=== PATIENT | female | born 1970 | race Caucasian/White ===

== ENCOUNTER 2017-11-14 10:10 | Emergency (ER) | payer BC, OTHER ==
[2017-11-14] MEDS ORDERED: Aspirin 81 MG Tab.Chew PO ONE (10:19)
--- NOTE | 2017-11-14 10:21 | EDM.PDOC ---
ED HPI GENERAL MEDICAL PROBLEM - General Stated Complaint: UNK Time Seen by Provider: 11/14/17 10:21 Source of Information: Reports: Patient - History of Present Illness INITIAL COMMENTS - FREE TEXT/NARRATIVE: HISTORY AND PHYSICAL: History of present illness: [Patient has presented with chest pain today, blood pressure is checked at her workplace and found to be quite elevated on their measurement 180s over 1 teens however on arrival here blood pressure is 120/80 patient is in no distress does not appear anxious no fever nausea vomiting chills sweats no chest pain shortness breath headache dizziness palpitation no bowel or urine symptoms 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 ] Review of systems: As per history of present illness and below otherwise all systems reviewed and negative. Past medical history: As per history of present illness and as reviewed below otherwise noncontributory. Surgical history: As per history of present illness and as reviewed below otherwise noncontributory. Social history: No reported history of drug or alcohol abuse. Family history: As per history of present illness and as reviewed below otherwise noncontributory. Physical exam: HEENT: Atraumatic, normocephalic, pupils reactive, negative for conjunctival pallor or scleral icterus, mucous membranes moist, throat clear, neck supple, nontender, trachea midline. Lungs: Clear to auscultation, breath sounds equal bilaterally, chest nontender. Heart: S1S2, regular, negative for clicks, rubs, or JVD. Abdomen: Soft, nondistended, nontender. Negative for masses or hepatosplenomegaly. Negative for costovertebral tenderness. Pelvis: Stable nontender. Genitourinary: Deferred. Rectal: Deferred. Extremities: Atraumatic, negative for cords or calf pain. Neurovascular unremarkable. Neuro: Awake, alert, oriented. Cranial nerves II through XII unremarkable. Cerebellum unremarkable. Motor and sensory unremarkable throughout. Exam nonfocal. Diagnostics: [CBC CMP cardiac enzymes INR EKG Chest 1 view ] Therapeutics: [ saline 500 mL aspirin 324 mg chewable ] Impression: [ chest pain -resolved Hypertension resolved Known history of dyslipidemia medication noncompliant Definitive disposition and diagnosis as appropriate pending reevaluation and review of above. - Related Data Allergies Allergy/AdvReac Type Severity Reaction Status Date / Time No Known Allergies Allergy Verified 11/14/17 10:54 Home Meds: Home Meds . [No Known Home Meds] 11/14/17 [History] ED ROS GENERAL - Review of Systems Review Of Systems: ROS reveals no pertinent complaints other than HPI. ED EXAM, GENERAL - Physical Exam Exam: See Below Course - Vital Signs Last Recorded V/S: Last Vital Signs Temp 97.9 F 11/14/17 10:15 Pulse 77 11/14/17 10:15 Resp 16 11/14/17 10:15 BP 134/84 11/14/17 10:15 Pulse Ox 97 11/14/17 10:15 - Orders/Labs/Meds Orders: Active Orders 24 hr Category Date Time Status EKG Documentation Completion [RC] STAT Care 11/14/17 10:20 Active UA W/MICROSCOPIC [URIN] Stat Lab 11/14/17 11:10 Ordered Sodium Chloride 0.9% [Normal Saline] 500 ml Med 11/14/17 10:30 Active IV STAT Medication Orders Sodium Chloride (Normal Saline) 500 mls @ 999 mls/hr IV STAT MARISELA Last Admin: 11/14/17 10:29 Dose: 999 mls/hr Labs: Laboratory Tests 11/14/17 11/14/17 11/14/17 Range/Units 10:20 10:20 10:20 WBC 8.41 (4.0-11.0) K/uL RBC 4.57 (4.30-5.90) M/uL Hgb 14.7 (12.0-16.0) g/dL Hct 42.0 (36.0-46.0) % MCV 91.9 (80.0-98.0) fL MCH 32.2 H (27.0-32.0) pg MCHC 35.0 (31.0-37.0) g/dL RDW Std Deviation 43.0 (28.0-62.0) fl RDW Coeff of Natalie 13 (11.0-15.0) % Plt Count 283 (150-400) K/uL MPV 10.20 (7.40-12.00) fL Neut % (Auto) 55.8 (48.0-80.0) % Lymph % (Auto) 30.8 (16.0-40.0) % [place] % (Auto) 8.6 (0.0-15.0) % Eos % (Auto) 4.2 (0.0-7.0) % Baso % (Auto) 0.6 (0.0-1.5) % Neut # (Auto) 4.7 (1.4-5.7) K/uL Lymph # (Auto) 2.6 H (0.6-2.4) K/uL [place] # (Auto) 0.7 (0.0-0.8) K/uL Eos # (Auto) 0.4 (0.0-0.7) K/uL Baso # (Auto) 0.1 (0.0-0.1) K/uL Nucleated RBC % 0.0 /100WBC Nucleated RBCs # 0 K/uL INR 0.97 Sodium 137 (136-145) mmol/L Potassium 4.4 (3.5-5.1) mmol/L Chloride 103 (98-107) mmol/L Carbon Dioxide 26.2 (21.0-32.0) mmol/L BUN 16 (7.0-18.0) mg/dL Creatinine 0.9 (0.6-1.0) mg/dL Est Cr Clr Drug Dosing 58.31 mL/min Estimated GFR (MDRD) > 60.0 ml/min Glucose 103 (74-106) mg/dL Calcium 9.1 (8.5-10.1) mg/dL Total Bilirubin 0.9 (0.2-1.0) mg/dL AST 106 H (15-37) IU/L ALT 120 H (14-63) IU/L Alkaline Phosphatase 79 (46-116) U/L Creatine Kinase 77 (26-308) U/L CK-MB (CK-2) 0.8 (0-3.6) ng/mL Troponin I < 0.050 (0.000-0.056) ng/mL Total Protein 6.9 (6.4-8.2) g/dL Albumin 3.8 (3.4-5.0) g/dL Globulin 3.1 (2.0-3.5) g/dL Albumin/Globulin Ratio 1.2 L (1.3-2.8) Lipase 52 L (73-393) U/L Meds: Medications Generic Name Dose Route Start Last Admin Trade Name Freq PRN Reason Stop Dose Admin Sodium Chloride 500 mls @ 999 mls/hr 11/14/17 10:30 11/14/17 10:29 Normal Saline IV 999 mls/hr STAT MARISELA Administration Discontinued Medications Generic Name Dose Route Start Last Admin Trade Name Ayden PRN Reason Stop Dose Admin Aspirin 324 mg 11/14/17 10:19 11/14/17 10:32 Aspirin PO 11/14/17 10:20 324 mg ONETIME ONE Administration Departure - Departure Time of Disposition: 11:21 Disposition: Home, Self-Care 01 Condition: Good Clinical Impression: Atypical chest pain - Discharge Information Referrals: PCP,Unknown [Primary Care Provider] - Additional Instructions: No specific recommendation at this time as far as prescription medications Recommend aspirin daily Follow-up with primary care for recheck of cholestero possibly checking VMA levels to rule out pheochromocytoma you may discuss this with your primary care Consider exercise stress testing with your primary carel Return if symptoms persist or worsen [facility] - [facility] [address] [place] [id number] The following information is given to patients seen in the emergency department who are being discharged to home. This information is to outline your options for follow-up care. We provide all patients seen in our emergency department with a follow-up referral. The need for follow-up, as well as the timing and circumstances, are variable depending upon the specifics of your emergency department visit. If you don't have a primary care physician on staff, we will provide you with a referral. We always advise you to contact your personal physician following an emergency department visit to inform them of the circumstance of the visit and for follow-up with them and/or the need for any referrals to a consulting specialist. The emergency department will also refer you to a specialist when appropriate. This referral assures that you have the opportunity for follow-up care with a specialist. All of these measure are taken in an effort to provide you with optimal care, which includes your follow-up. Under all circumstances we always encourage you to contact your private physician who remains a resource for coordinating your care. When calling for follow-up care, please make the office aware that this follow-up is from your recent emergency room visit. If for any reason you are refused follow-up, please contact the [facility] emergency department at and asked to speak to the emergency department charge nurse. - My Orders Last 24 Hours: My Active Orders 11/14/17 10:20 EKG Documentation Completion [RC] STAT 11/14/17 10:30 Sodium Chloride 0.9% [Normal Saline] 500 ml IV STAT 11/14/17 11:10 UA W/MICROSCOPIC [URIN] Stat - Assessment/Plan Last 24 Hours: My Active Orders 11/14/17 10:20 EKG Documentation Completion [RC] STAT 11/14/17 10:30 Sodium Chloride 0.9% [Normal Saline] 500 ml IV STAT 11/14/17 11:10 UA W/MICROSCOPIC [URIN] Stat
[2017-11-14] MEDS ORDERED: Sodium Chloride 0.9% 500 ML IV SCH (10:30)
[2017-11-14 11:15] LABS: CHLORIDE,CL 103 mmol/L (98-107); SODIUM,NA 137 mmol/L (136-145)
--- NOTE | 2017-11-14 11:18 | CR ---
EXAMINATION: Portable chest radiograph. HISTORY: Shortness of breath. FINDINGS: The trachea is midline. The cardiomediastinal silhouette is within normal limits. No pulmonary infilt rates, effusions or pneumothorax. Osseous structures appear unremarkable. IMPRESSION: No acute cardiopulmonary process.
== END 2017-11-14 11:38 | disposition home or self-care (01) ==
LOC: MW.ED 10:10
DX: R07.89 Other chest pain (principal); I10 Essential (primary) hypertension
CPT/HCPCS: 36415; 71045; 80053; 81001; 82550; 82553; 83690; 84484; 85025; 85610; 93005; 96360; 99285; A9270; J7040

== ENCOUNTER 2018-09-18 11:00 | Emergency (ER) | payer OTHER ==
--- NOTE | 2018-09-18 12:31 | EDM.PDOC ---
ED HPI GENERAL MEDICAL PROBLEM - General Chief Complaint: Cardiovascular Problem Stated Complaint: CHEST PAINS Time Seen by Provider: 09/18/18 11:35 Source of Information: Reports: Patient History Limitations: Reports: No Limitations - History of Present Illness INITIAL COMMENTS - FREE TEXT/NARRATIVE: Presents primarily with a headache. The patient states that she has been doctoring for a number of things including a one year history of chest pain which she states was completely worked up by cardiology. She also has an EGD scheduled through primary care and an appointment with neurology for her ongoing headaches. She came in today because she had the worst headaches ever over the weekend. She saw her primary care provider today who sent her over to the ER for a CT scan. I was unable to ascertain why the primary care provider did not do a CT T scan through the clinic. According to the patient, she had a "thunderclap" headache on Monday which started with some chest pain. That got better with some rest. Later she went over to the emergency room in [place] for her 1 year history of chest pain even though that had been evaluated previously. She was evaluated, given a nitroglycerin and sent home. Then yesterday she had another stabbing headache, came to the ER, saw there was a long line at the admissions desk, went out to her car and sat for a little while. The headache improved so she went home. Now today, she states the headache is lingering. 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 - Past Surgical History HEENT Surgical History: Reports: Tonsillectomy GI Surgical History: Reports: Appendectomy Social & Family History - Family History Family Medical History: Noncontributory Cardiac: Reports: Bypass, High Cholesterol, Hypertension Other Cardiac Family History: cardiac problems in father - Tobacco Use Smoking Status *Q: Current Every Day Smoker Years of Tobacco use: 10 Packs/Tins Daily: 1 - Caffeine Use Caffeine Use: Reports: Coffee, Energy Drinks, Tea - Recreational Drug Use Recreational Drug Use: No ED ROS GENERAL - Review of Systems Review Of Systems: ROS reveals no pertinent complaints other than HPI. ED EXAM, GENERAL - Physical Exam Exam: See Below Exam Limited By: No Limitations General Appearance: Alert, No Apparent Distress Eye Exam: Bilateral Eye: EOMI, PERRL Ears: Normal External Exam, Normal TMs Nose: Normal Inspection Throat/Mouth: Normal Inspection Head: Atraumatic, Normocephalic Neck: Normal Inspection Respiratory/Chest: No Respiratory Distress, Lungs Clear, Normal Breath Sounds Cardiovascular: Normal Peripheral Pulses, Regular Rate, Rhythm, No Murmur GI/Abdominal: Soft Neurological: Alert, Oriented, CN II-XII Intact, Normal Cognition, No Motor/ Sensory Deficits Psychiatric: Normal Affect, Normal Mood Skin Exam: Warm, Dry, Intact, Normal Color, No Rash Lymphatic: No Adenopathy Course - Vital Signs Last Recorded V/S: Last Vital Signs Temp 36.9 C 09/18/18 11:12 Pulse 82 09/18/18 11:12 Resp 18 09/18/18 11:12 BP 143/81 H 09/18/18 11:12 Pulse Ox 96 09/18/18 11:12 - Re-Assessments/Exams Free Text/Narrative Re-Assessment/Exam: 09/18/18 12:50 The patient declined any offers of treatment for her headache. She will see neurology as previously scheduled Departure - Departure Time of Disposition: 12:50 Disposition: Home, Self-Care 01 Condition: Good Clinical Impression: Headache Qualifiers: Headache type: other headache syndrome Qualified Code(s): G44.89 - Other headache syndrome Referrals: PCP,Unknown [Primary Care Provider] - [facility] [Outside] Pratima Leal MD [Physician] - Forms: ED Department Discharge Additional Instructions: 1. Ibuprofen 2-3 tabs 3 times daily for headache 2. Follow-up with neurology as previously scheduled
--- NOTE | 2018-09-18 12:43 | CT ---
EXAMINATION: Non contrast CT head. Coronal and sagittal reformats. HISTORY: Headache FINDINGS: No evidence of intra or extra axial hemorrhage, mass, midline shift, hydrocephalus or edema. No hypoattenuation changes in the major vascular territories to suggest acute infarct. No abnormal intracranial calcifications are detected. No evidence of substantial vascular calcifications. Paranasal sinuses and mastoid air cells are well aerated without substantial findings. Orbits and globes are symmetric. Pituitary fossa appears unremarkable. Calvarium is intact. No evidence of skull fracture. IMPRESSION: No acute intracranial findings.
== END 2018-09-18 13:04 | disposition home or self-care (01) ==
LOC: MW.ED 11:00
DX: G44.89 Other headache syndrome (principal); R07.9 Chest pain, unspecified; F17.210 Nicotine dependence, cigarettes, uncomplicated; E78.00 Pure hypercholesterolemia, unspecified
CPT/HCPCS: 70450; 70450-26; 93005; 99284-25

== ENCOUNTER 2019-01-15 08:12 | Emergency (ER) | payer OTHER ==
[2019-01-15] MEDS ORDERED: Aspirin 81 MG Tab.Chew PO ONE (08:22)
--- NOTE | 2019-01-15 08:23 | EDM.PDOC ---
ED HPI GENERAL MEDICAL PROBLEM - General Chief Complaint: Chest Pain Stated Complaint: CHEST PAIN Time Seen by Provider: 01/15/19 08:23 Source of Information: Reports: Patient - History of Present Illness INITIAL COMMENTS - FREE TEXT/NARRATIVE: HISTORY AND PHYSICAL: History of present illness: [Patient complains of epigastric pain 2 out of 10 nonradiating, persistent waxing and waning for one year with food association although she is kind of weaned herself off of most fatty greasy foods She has been following with cardiology and has had negative stress testing and been seen through [facility] as well No fever vomiting chills sweats she does complain of mild nausea associated no actual chest pain shortness of breath associated with diaphoresis no radiation arm neck or jaw Patient is in no apparent distress ] Review of systems: As per history of present illness and below otherwise all systems reviewed and negative. Past medical history: As per history of present illness and as reviewed below otherwise noncontributory. Surgical history: As per history of present illness and as reviewed below otherwise noncontributory. Social history: No reported history of drug or alcohol abuse. Family history: As per history of present illness and as reviewed below otherwise noncontributory. Physical exam: HEENT: Atraumatic, normocephalic, pupils reactive, negative for conjunctival pallor or scleral icterus, mucous membranes moist, throat clear, neck supple, nontender, trachea midline. Lungs: Clear to auscultation, breath sounds equal bilaterally, chest nontender. Heart: S1S2, regular, negative for clicks, rubs, or JVD. Abdomen: Soft, nondistended, nontender. Negative for masses or hepatosplenomegaly. Negative for costovertebral tenderness. Pelvis: Stable nontender. Genitourinary: Deferred. Rectal: Deferred. Extremities: Atraumatic, negative for cords or calf pain. Neurovascular unremarkable. Neuro: Awake, alert, oriented. Cranial nerves II through XII unremarkable. Cerebellum unremarkable. Motor and sensory unremarkable throughout. Exam nonfocal. Diagnostics: [CBC CMP UA troponin lipase EKG Chest 1 view ]Abdomen limited ultrasound Cipro Zofran [place] diet discussed with Dr. Colon she will see her in follow-up in order HIDA scan Therapeutics: [ aspirin 324 mg chewable ]-resolved Normal saline Toradol Zofran Impression: [ abdominal pain ] Definitive disposition and diagnosis as appropriate pending reevaluation and review of above. Middle Chest Pain Score (Numeric/FACES): 5 - Related Data Allergies Allergy/AdvReac Type Severity Reaction Status Date / Time No Known Allergies Allergy Verified 01/15/19 08:21 Home Meds: Home Meds . 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 - Past Surgical History HEENT Surgical History: Reports: Tonsillectomy GI Surgical History: Reports: Appendectomy Social & Family History - Family History Family Medical History: Noncontributory Cardiac: Reports: Bypass, High Cholesterol, Hypertension Other Cardiac Family History: cardiac problems in father - Caffeine Use Caffeine Use: Reports: Coffee, Energy Drinks, Tea ED ROS GENERAL - Review of Systems Review Of Systems: See Below ED EXAM, GENERAL - Physical Exam Exam: See Below Course - Vital Signs Last Recorded V/S: Last Vital Signs Temp 97.2 F 01/15/19 11:10 Pulse 66 01/15/19 11:10 Resp 13 01/15/19 10:45 BP 102/60 01/15/19 11:10 Pulse Ox 96 01/15/19 11:10 - Orders/Labs/Meds Orders: Active Orders 24 hr Category Date Time Status EKG Documentation Completion [RC] STAT Care 01/15/19 08:23 Active CULTURE URINE [RM] Stat Lab 01/15/19 09:50 Received Labs: Laboratory Tests 01/15/19 01/15/19 01/15/19 Range/Units 08:21 08:21 09:50 WBC 12.06 H (4.0-11.0) K/uL RBC 5.14 (4.30-5.90) M/uL Hgb 17.0 H (12.0-16.0) g/dL Hct 47.9 H (36.0-46.0) % MCV 93.2 (80.0-98.0) fL MCH 33.1 H (27.0-32.0) pg MCHC 35.5 (31.0-37.0) g/dL RDW Std Deviation 41.1 (28.0-62.0) fl RDW Coeff of Natalie 12 (11.0-15.0) % Plt Count 295 (150-400) K/uL MPV 10.10 (7.40-12.00) fL Neut % (Auto) 72.1 (48.0-80.0) % Lymph % (Auto) 17.8 (16.0-40.0) % [place] % (Auto) 8.1 (0.0-15.0) % Eos % (Auto) 1.6 (0.0-7.0) % Baso % (Auto) 0.4 (0.0-1.5) % Neut # (Auto) 8.7 H (1.4-5.7) K/uL Lymph # (Auto) 2.2 (0.6-2.4) K/uL [place] # (Auto) 1.0 H (0.0-0.8) K/uL Eos # (Auto) 0.2 (0.0-0.7) K/uL Baso # (Auto) 0.1 (0.0-0.1) K/uL Nucleated RBC % 0.0 /100WBC Nucleated RBCs # 0 K/uL Sodium 132 L (136-145) mmol/L Potassium 4.2 (3.5-5.1) mmol/L Chloride 103 (98-107) mmol/L Carbon Dioxide 20.3 L (21.0-32.0) mmol/L BUN 17 (7.0-18.0) mg/dL Creatinine 0.8 (0.6-1.0) mg/dL Est Cr Clr Drug Dosing 64.89 mL/min Estimated GFR (MDRD) > 60.0 ml/min Glucose 114 H (74-106) mg/dL Calcium 8.8 (8.5-10.1) mg/dL Total Bilirubin 1.7 H (0.2-1.0) mg/dL AST 20 (15-37) IU/L ALT 29 (14-63) IU/L Alkaline Phosphatase 66 (46-116) U/L Troponin I < 0.050 (0.000-0.056) ng/mL Total Protein 7.7 (6.4-8.2) g/dL Albumin 4.3 (3.4-5.0) g/dL Globulin 3.4 (2.6-4.0) g/dL Albumin/Globulin Ratio 1.3 (0.9-1.6) Lipase 50 L (73-393) U/L Urine Color YELLOW Urine Appearance SLT CLOUDY Urine pH 5.5 (5.0-8.0) Ur Specific [place] 1.020 (1.001-1.035) Urine Protein NEGATIVE (NEGATIVE) mg/dL Urine Glucose (UA) NEGATIVE (NEGATIVE) mg/dL Urine Ketones NEGATIVE (NEGATIVE) mg/dL Urine Occult Blood LARGE H (NEGATIVE) Urine Nitrite NEGATIVE (NEGATIVE) Urine Bilirubin NEGATIVE (NEGATIVE) Urine Urobilinogen 0.2 (<2.0) EU/dL Ur Leukocyte Esterase TRACE H (NEGATIVE) Urine RBC 0-2 (0-2/HPF) Urine WBC 2-5 (0-5/HPF) Ur Epithelial Cells FEW (NONE-FEW) Urine Bacteria RARE (NEGATIVE) Meds: Medications Discontinued Medications Generic Name Dose Route Start Last Admin Trade Name Deniq PRN Reason Stop Dose Admin Aspirin 324 mg 01/15/19 08:22 01/15/19 08:35 Aspirin PO 01/15/19 08:23 324 mg ONETIME ONE Administration Sodium Chloride 1,000 mls @ 999 mls/hr 01/15/19 08:29 01/15/19 08:35 Normal Saline IV 01/15/19 09:29 999 mls/hr STAT ONE Administration Ketorolac Tromethamine 30 mg 01/15/19 08:30 01/15/19 08:35 Toradol IVPUSH 01/15/19 08:31 30 mg ONETIME ONE Administration Ondansetron HCl 8 mg 01/15/19 08:30 01/15/19 08:35 Zofran IVPUSH 01/15/19 08:31 8 mg ONETIME ONE Administration Departure - Departure Time of Disposition: 12:19 Disposition: Home, Self-Care 01 Condition: Good Clinical Impression: Abdominal pain - Discharge Information Referrals: PCP,None [Primary Care Provider] - Forms: ED Department Discharge Additional Instructions: Medication as prescribed Return if symptoms persist or worsen [place] diet as discussed follow-up with general surgery for consideration of HIDA scan, ER referral for next week [facility] - General Surgery Professional Building [address] [place] [address], [address] [place] [address] The following information is given to patients seen in the emergency department who are being discharged to home. This information is to outline your options for follow-up care. We provide all patients seen in our emergency department with a follow-up referral. The need for follow-up, as well as the timing and circumstances, are variable depending upon the specifics of your emergency department visit. If you don't have a primary care physician on staff, we will provide you with a referral. We always advise you to contact your personal physician following an emergency department visit to inform them of the circumstance of the visit and for follow-up with them and/or the need for any referrals to a consulting specialist. The emergency department will also refer you to a specialist when appropriate. This referral assures that you have the opportunity for follow-up care with a specialist. All of these measure are taken in an effort to provide you with optimal care, which includes your follow-up. Under all circumstances we always encourage you to contact your private physician who remains a resource for coordinating your care. When calling for follow-up care, please make the office aware that this follow-up is from your recent emergency room visit. If for any reason you are refused follow-up, please contact the [facility] emergency department at and asked to speak to the emergency department charge nurse. - My Orders Last 24 Hours: My Active Orders 01/15/19 08:23 EKG Documentation Completion [RC] STAT 01/15/19 09:50 CULTURE URINE [RM] Stat - Assessment/Plan Last 24 Hours: My Active Orders 01/15/19 08:23 EKG Documentation Completion [RC] STAT 01/15/19 09:50 CULTURE URINE [RM] Stat
[2019-01-15] MEDS ORDERED: Sodium Chloride 0.9% 1,000 ML IV ONE (08:29)
[2019-01-15] MEDS ORDERED: Ondansetron 4 MG/2 ML SDV IVPUSH ONE (08:30)
[2019-01-15] MEDS ORDERED: Ketorolac 30 MG/ML SDV IVPUSH ONE (08:30)
[2019-01-15 08:56] LABS: CHLORIDE,CL 103 mmol/L (98-107); SODIUM,NA 132 mmol/L (136-145)
--- NOTE | 2019-01-15 09:01 | CR ---
EXAMINATION: Portable chest radiograph. HISTORY: Shortness of breath. FINDINGS: The trachea is midline. The cardiomediastinal silhouette is within normal limits. No pulmonary infiltrates, effusions or pneumothorax. Osseous structures appear unremarkable. IMPRESSION: No acute cardiopulmonary process.
--- NOTE | 2019-01-15 11:49 | US ---
EXAMINATION: Right upper quadrant ultrasound HISTORY: Pain COMPARISON: None TECHNIQUE: Grayscale and color Doppler imaging obtained of the right upper quadrant. FINDINGS: The visualized pancreas appears normal. The liver is normal in contour and echotexture without a focal hepatic mass. The common bile duct is mildly prominent at 8 mm, however the distal common bile duct is not adequately visualized. The gallbladder wall thickness is normal. No pericholecystic fluid or shadowing gallstones. Right kidney measures 10.8 cm [id number] without evidence of hydronephrosis. IMPRESSION: 1. Mildly dilated common bile duct measuring 8 mm, otherwise unremarkable right upper quadrant ultrasound.
== END 2019-01-15 12:43 | disposition home or self-care (01) ==
LOC: MW.ED 08:12
DX: R10.13 Epigastric pain (principal)
CPT/HCPCS: 36415; 71045; 76705; 80053; 81001; 83690; 84484; 85025; 87086; 93005; 96361; 96374; 96375; 99285; A9270; J1885; J2405; J7040

== ENCOUNTER 2019-01-16 13:33 | Emergency (ER) | payer OTHER ==
[2019-01-16] MEDS ORDERED: Ondansetron 4 MG/2 ML SDV IVPUSH ONE (13:47)
[2019-01-16] MEDS ORDERED: Ketorolac 30 MG/ML SDV IVPUSH ONE (13:47)
[2019-01-16] MEDS ORDERED: Sodium Chloride 0.9% 1,000 ML IV ONE (13:47)
--- NOTE | 2019-01-16 13:47 | EDM.PDOC ---
ED HPI GENERAL MEDICAL PROBLEM - General Chief Complaint: Chest Pain Stated Complaint: CHEST PAINS Time Seen by Provider: 01/16/19 13:38 Source of Information: Reports: Patient History Limitations: Reports: No Limitations - History of Present Illness INITIAL COMMENTS - FREE TEXT/NARRATIVE: HISTORY AND PHYSICAL: History of present illness: Patient is a 48-year-old female who presents to the emergency room today with complaints of epigastric/left-sided chest wall pain which has been going on intermittently over the past one year. She states over the past several days it has become more bothersome. She was evaluated in the emergency room yesterday, on 01/15/19. She did have a workup which included cardiac enzymes and an ultrasound of her right upper quadrant. She was encouraged to follow up with Dr. Adams for further evaluation and HIDA scan. She call Dr. Adams's office and was told that the next available appointment was mid January. Patient did not make an appointment and she states that she is "not waiting that long to get my gallbladder out". She informed the staff at the clinic that she was having chest pain in the encouraged her to come to the emergency room. She is given a prescription for Zofran and [place]. Patient states she filled this prescription but has not tried the [place] medication. Patient states that she has not been able to eat or drink as doing so does cause her pain to be exacerbated. Besides the epigastric/left-sided chest wall pain she does have mild nausea. Patient denies any fever, chills, headache, change in vision, syncope or near syncope. Denies any back pain, shortness of breath or cough. Denies any vomiting , diarrhea, constipation or dysuria. Has not noted any blood in urine or stool. Review of systems: As per history of present illness and below otherwise all systems reviewed and negative. Past medical history: As per history of present illness and as reviewed below otherwise noncontributory. Surgical history: As per history of present illness and as reviewed below otherwise noncontributory. Social history: See social history for further information Family history: As per history of present illness and as reviewed below otherwise noncontributory. Physical exam: General: Well-developed and well-nourished 48-year-old female. Alert and oriented. Nontoxic appearing and in no acute distress. HEENT: Atraumatic, normocephalic, pupils equal and reactive bilaterally, negative for conjunctival pallor or scleral icterus, mucous membranes moist, trachea midline. No drooling or trismus noted. No meningeal signs. No hot potato voice noted. Lungs: Clear to auscultation, breath sounds equal bilaterally, chest nontender. Heart: S1S2, regular rate and rhythm without overt murmur Abdomen: Soft, nondistended, nontender. Negative for masses or hepatosplenomegaly. Negative for costovertebral tenderness. Pelvis: Stable nontender. Skin: Intact, warm, dry. No lesions or rashes noted. Extremities: Atraumatic, moves all extremities per self without difficulty or deficits, negative for cords or calf pain. Neurovascular unremarkable. Neuro: Awake, alert, oriented. Cranial nerves II through XII unremarkable. Cerebellum unremarkable. Motor and sensory unremarkable throughout. Exam nonfocal. Notes: Ultrasound on 01/15/19 shows mildly dilated common bile duct measuring 8 mm, otherwise unremarkable right upper quadrant ultrasound. Patient's troponin is elevated at this time. A troponin was done yesterday and was in normal limits. Her EKG upon arrival shows no acute findings. This was reviewed by myself and Dr. Sinclair. Repeat EKG shows no acute findings. Dr Du, [facility] physician, was consulted on this case and agreeable to accepting this patient for further care and management. Patient was made aware of diagnostic findings. She has been pain-free since arrival. Vital signs are stable and have been reviewed by me. Patient will be transferred via ground EMS Diagnostics: CBC, CMP, troponin, EKG Therapeutics: IV fluid, Zofran, Toradol Impression: ACS Plan: Transfer to [facility] in [place] Definitive disposition and diagnosis as appropriate pending reevaluation and review of above. Mid-Sternal Chest Pain Score (Numeric/FACES): 3 - Related Data Allergies Allergy/AdvReac Type Severity Reaction Status Date / Time No Known Allergies Allergy Verified 01/16/19 13:38 Home Meds: Home Meds . [No Known Home Meds] 01/15/19 [History] Past Medical History Cardiovascular History: Reports: High Cholesterol Gastrointestinal History: Reports: Other (See Below) Other Gastrointestinal History: pt c/o of having heartburn for the last week CONSULTING ANALYST History: Reports: , Other (See Below) Other CONSULTING ANALYST History: x3 - Infectious Disease History Infectious Disease History: Reports: Chicken Pox - Past Surgical History HEENT Surgical History: Reports: Tonsillectomy GI Surgical History: Reports: Appendectomy Musculoskeletal Surgical History: Reports: Other (See Below) Other Musculoskeletal Surgeries/Procedures:: L knee surgery Social & Family History - Family History Family Medical History: Noncontributory Cardiac: Reports: Bypass, High Cholesterol, Hypertension Other Cardiac Family History: cardiac problems in father - Tobacco Use Smoking Status *Q: Current Every Day Smoker Years of Tobacco use: 20 Packs/Tins Daily: 0.5 - Caffeine Use Caffeine Use: Reports: Coffee, Energy Drinks, Tea - Recreational Drug Use Recreational Drug Use: No ED ROS GENERAL - Review of Systems Review Of Systems: ROS reveals no pertinent complaints other than HPI. ED EXAM, GENERAL - Physical Exam Exam: See Below (See dictation) Course - Vital Signs Last Recorded V/S: Last Vital Signs Temp 98.8 F 01/16/19 13:34 Pulse 74 01/16/19 14:30 Resp 18 01/16/19 14:30 BP 130/90 01/16/19 14:30 Pulse Ox 98 01/16/19 14:30 - Orders/Labs/Meds Orders: Active Orders 24 hr Category Date Time Status EKG Documentation Completion [RC] STAT Care 01/16/19 13:42 Active EKG Documentation Completion [RC] STAT Care 01/16/19 14:46 Active Labs: Laboratory Tests 01/16/19 01/16/19 Range/Units 13:52 13:52 WBC 11.37 H (4.0-11.0) K/uL RBC 4.84 (4.30-5.90) M/uL Hgb 15.8 (12.0-16.0) g/dL Hct 45.6 (36.0-46.0) % MCV 94.2 (80.0-98.0) fL MCH 32.6 H (27.0-32.0) pg MCHC 34.6 (31.0-37.0) g/dL RDW Std Deviation 41.8 (28.0-62.0) fl RDW Coeff of Natalie 12 (11.0-15.0) % Plt Count 273 (150-400) K/uL MPV 9.90 (7.40-12.00) fL Neut % (Auto) 75.5 (48.0-80.0) % Lymph % (Auto) 18.8 (16.0-40.0) % [place] % (Auto) 4.9 (0.0-15.0) % Eos % (Auto) 0.4 (0.0-7.0) % Baso % (Auto) 0.4 (0.0-1.5) % Neut # (Auto) 8.6 H (1.4-5.7) K/uL Lymph # (Auto) 2.1 (0.6-2.4) K/uL [place] # (Auto) 0.6 (0.0-0.8) K/uL Eos # (Auto) 0.0 (0.0-0.7) K/uL Baso # (Auto) 0.0 (0.0-0.1) K/uL Nucleated RBC % 0.0 /100WBC Nucleated RBCs # 0 K/uL Sodium 135 L (136-145) mmol/L Potassium 3.8 (3.5-5.1) mmol/L Chloride 102 (98-107) mmol/L Carbon Dioxide 21.2 (21.0-32.0) mmol/L BUN 11 (7.0-18.0) mg/dL Creatinine 0.8 (0.6-1.0) mg/dL Est Cr Clr Drug Dosing 64.89 mL/min Estimated GFR (MDRD) > 60.0 ml/min Glucose 113 H (74-106) mg/dL Calcium 8.3 L (8.5-10.1) mg/dL Total Bilirubin 2.1 H (0.2-1.0) mg/dL AST 17 (15-37) IU/L ALT 25 (14-63) IU/L Alkaline Phosphatase 56 (46-116) U/L Troponin I 0.304 H* (0.000-0.056) ng/mL Total Protein 6.9 (6.4-8.2) g/dL Albumin 4.0 (3.4-5.0) g/dL Globulin 2.9 (2.6-4.0) g/dL Albumin/Globulin Ratio 1.4 (0.9-1.6) Lipase 41 L (73-393) U/L Meds: Medications Discontinued Medications Generic Name Dose Route Start Last Admin Trade Name Freq PRN Reason Stop Dose Admin Aspirin 324 mg 01/16/19 14:46 01/16/19 14:55 Aspirin PO 01/16/19 14:47 324 mg ONETIME ONE Administration Sodium Chloride 1,000 mls @ 999 mls/hr 01/16/19 13:47 01/16/19 14:16 Normal Saline IV 01/16/19 14:47 999 mls/hr STAT ONE Administration Ketorolac Tromethamine 30 mg 01/16/19 13:47 01/16/19 14:16 Toradol IVPUSH 01/16/19 13:48 30 mg ONETIME ONE Administration Morphine Sulfate 2 mg 01/16/19 14:48 01/16/19 15:00 Morphine IVPUSH 01/16/19 14:49 Not Given ONETIME ONE Nitroglycerin 1 gm 01/16/19 14:48 01/16/19 14:55 Nitro-Bid 2% TOP 01/16/19 14:49 1 gm ONETIME ONE Administration Ondansetron HCl 4 mg 01/16/19 13:47 01/16/19 14:16 Zofran IVPUSH 01/16/19 13:48 4 mg ONETIME ONE Administration Departure - Departure Time of Disposition: 15:48 Disposition: DC/Tfer to Acute Hospital 02 Reason for Transfer *Q: Primary PCI Indicated Clinical Impression: Acute coronary syndrome Referrals: PCP,Unknown [Primary Care Provider] - Forms: ED Department Discharge - My Orders Last 24 Hours: My Active Orders 01/16/19 13:42 EKG Documentation Completion [RC] STAT 01/16/19 14:46 EKG Documentation Completion [RC] STAT - Assessment/Plan Last 24 Hours: My Active Orders 01/16/19 13:42 EKG Documentation Completion [RC] STAT 01/16/19 14:46 EKG Documentation Completion [RC] STAT
[2019-01-16 14:41] LABS: CHLORIDE,CL 102 mmol/L (98-107); SODIUM,NA 135 mmol/L (136-145)
[2019-01-16] MEDS ORDERED: Aspirin 81 MG Tab.Chew PO ONE (14:46)
[2019-01-16] MEDS ORDERED: Nitroglycerin 2% Oint 1 GM UD Packet TOP ONE (14:48)
[2019-01-16] MEDS ORDERED: Morphine 2 MG/ML Syringe IVPUSH ONE (14:48)
== END 2019-01-16 16:15 ==
LOC: MW.ED 13:33
DX: I24.9 Acute ischemic heart disease, unspecified (principal); F17.210 Nicotine dependence, cigarettes, uncomplicated; E78.00 Pure hypercholesterolemia, unspecified
CPT/HCPCS: 36415; 80053; 83690; 84484; 85025; 93005; 96361; 96374; 96375; 99285; A9270; J1885; J2405; J7040

== ENCOUNTER 2019-02-28 14:45 | Emergency (ER) | payer OTHER ==
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
[2019-02-28] MEDS ORDERED: Sodium Chloride 0.9% 1,000 ML IV ONE (14:54)
[2019-02-28] MEDS ORDERED: Morphine 2 MG/ML Syringe IVPUSH ONE ×2 (14:54→16:12)
[2019-02-28] MEDS ORDERED: Ondansetron 4 MG/2 ML SDV IVPUSH ONE (14:54)
[2019-02-28 15:32] LABS: BLOOD UREA NITROGEN,BUN 20 mg/dL (7.0-18.0); CARBON DIOXIDE,CO2 22.7 mmol/L (21.0-32.0); CHLORIDE,CL 105 mmol/L (98-107); GLUCOSE RANDOM 140 mg/dL (74-106); POTASSIUM,K 3.8 mmol/L (3.5-5.1); SODIUM,NA 140 mmol/L (136-145)
[2019-02-28] MEDS ORDERED: Diphtheria,Pertussis(Acell),Tetanus Vaccine 0.5 ML Syringe IM ONE (15:37)
[2019-02-28] MEDS ORDERED: Iopamidol 755 MG/ML 500 ML Multipack Bottle IVPUSH STA (15:56)
--- NOTE | 2019-02-28 16:07 | CR ---
Indication: Injury and pain Technique: Left knee 3 views Comparison: None Findings/Impression: Bones: Acute transverse nondisplaced fracture is in the lower pole of the patella. There are postoperative changes from an ACL reconstruction. No other osseous abnormality. Joint spaces: Joint effusion is present. No degenerative changes. Soft tissues: Superficial soft tissue swelling is anterior to the patella. Dictated by Kye Thornton MD @ Feb 28 2019 4:04PM Signed by Dr. Kye Thornton @ Feb 28 2019 4:06PM
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
[2019-02-28] MEDS ORDERED: Lidocaine 1% 10 ML MDV INJECT ONE (16:37)
[2019-02-28] MEDS ORDERED: Morphine 4 MG/ML Syringe IVPUSH ONE (16:37)
[2019-02-28] MEDS ORDERED: ceFAZolin 1 GM in Premix Bag 1 BAG IV ONE (16:38)
[2019-02-28] MEDS ORDERED: Lidocaine 1% 50 ML MDV ONE (16:40)
--- NOTE | 2019-02-28 16:41 | CT ---
INDICATION: Trauma TECHNIQUE: CT chest was acquired with 80 cc Isovue IV contrast. COMPARISON: September 25, 2018 FINDINGS: Cardiovascular structures: Heart size is normal. There is a coronary artery stent. Thoracic aorta and main pulmonary artery are normal in caliber. Mediastinum and brandon: No mass or adenopathy. Lungs: Clear. Pleura and pericardium: No effusions. Chest wall and axilla: No mass or adenopathy. Upper abdomen: Unremarkable. Bones: Minimally displaced fractures of the right anterior 4th through 7th ribs. Mild superior endplate irregularity of the T12 vertebral body, stable. IMPRESSION: Minimally displaced fractures of the right anterior 4th through 7th ribs. No pneumothorax. Coronary artery stent. Please note that all CT scans at this facility use dose modulation, iterative reconstruction, and/or weight-based dosing when appropriate to reduce radiation dose to as low as reasonably achievable. Dictated by Salma Pollock MD @ Feb 28 2019 4:26PM Signed by Dr. Salma Pollock @ Feb 28 2019 4:40PM
--- NOTE | 2019-02-28 17:02 | CT ---
INDICATION: Trauma TECHNIQUE: CT abdomen and pelvis acquired with 80 cc Isovue IV contrast. COMPARISON: None FINDINGS: Lower chest: Right anterolateral 4th through 7th rib fractures. Liver: Small amount of perihepatic free fluid measuring 23 Hounsfield units in density. Small amount of fluid in the hepatorenal space. Spleen: Unremarkable. Pancreas: Unremarkable. Gallbladder and bile ducts: Unremarkable. Adrenal glands: 3.0 x 1.6 cm right adrenal gland mass, new compared to the prior chest CT. Kidneys: Unremarkable. GI tract: Unremarkable. Appendix is surgically absent. Vascular structures: Unremarkable. Lymph nodes: Unremarkable. Miscellaneous: Focal soft tissue contusion in the left mid anterior abdominal wall image 84 series 301. Pelvic Organs: Trace free fluid in the pelvis. Bones: Bilateral sacroiliac joint sclerosis. Dystrophic calcification anteromedial to the right lesser trochanter. IMPRESSION: Small amount of perihepatic fluid likely represents small amount of hematoma from a small, occult liver laceration. Right adrenal gland hematoma. Focal soft tissue contusion in the left mid anterior abdominal wall. Right anterolateral 4th through 7th rib fractures. Findings discussed with Dr. Suarez at 5 p.m. on February 28, 2019. Please note that all CT scans at this facility use dose modulation, iterative reconstruction, and/or weight-based dosing when appropriate to reduce radiation dose to as low as reasonably achievable. Dictated by Salma Pollock MD @ Feb 28 2019 4:41PM Signed by Dr. Salma Pollock @ Feb 28 2019 5:02PM
[2019-02-28] MEDS ORDERED: Bacitracin Oint 1 GM U/D Packet TOP ONE (17:19)
[2019-02-28] MEDS ORDERED: Bacitracin Oint 1 GM U/D Packet ONE (17:20)
[2019-02-28] MEDS ORDERED: HYDROmorphone 2 MG/ML SDV IVPUSH ONE (17:46)
[2019-02-28] MEDS: HYDROmorphone 1 MG/ML Syringe ONE ×2 (17:55→17:58)
[2019-02-28] MEDS ORDERED: HYDROmorphone 1 MG/ML Syringe IVPUSH ONE (17:59)
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
[2019-02-28] MEDS ORDERED: Sodium Chloride 0.9% 1,000 ML IV SCH (18:15)
== END 2019-02-28 19:10 ==
LOC: MW.ED 14:45
DX: S82.035 Nondisplaced transverse fracture of left patella (principal); S22.41XA Multiple fractures of ribs, right side, initial encounter for closed fracture; S30.1XXA Contusion of abdominal wall, initial encounter; R74.0 Nonspecific elevation of levels of transaminase and lactic acid dehydrogenase [LDH]; V49.40XA Driver injured in collision with unspecified motor vehicles in traffic accident, initial encounter
CPT/HCPCS: 12004; 36415; 70450; 71260; 72125; 73562; 74177; 80053; 85025; 85610; 93005; 96361; 96365; 96375; 96376; 99285; J0690; J1170; J2001; J2270; J2405; J7040; Q9967

== ENCOUNTER 2019-04-29 17:58 | Emergency (ER) | payer OTHER ==
[2019-04-29] MEDS ORDERED: Aspirin 81 MG Tab.Chew PO ONE (18:04)
[2019-04-29] MEDS ORDERED: Sodium Chloride 0.9% 1,000 ML IV ONE (18:04)
--- NOTE | 2019-04-29 18:04 | EDM.PDOC ---
ED HPI GENERAL MEDICAL PROBLEM - General Chief Complaint: Chest Pain Stated Complaint: CHEST PAINS Time Seen by Provider: 04/29/19 18:03 Source of Information: Reports: Patient - History of Present Illness INITIAL COMMENTS - FREE TEXT/NARRATIVE: HISTORY AND PHYSICAL: History of present illness: [Patient with history of UT December presents with chest pain/pressure for 24 hours2 out of 10 nonradiating no radiation arm neck or jaw No fever nausea vomiting chills sweats no shortness breath no apparent distress ] Review of systems: As per history of present illness and below otherwise all systems reviewed and negative. Past medical history: As per history of present illness and as reviewed below otherwise noncontributory. Surgical history: As per history of present illness and as reviewed below otherwise noncontributory. Social history: No reported history of drug or alcohol abuse. Family history: As per history of present illness and as reviewed below otherwise noncontributory. Physical exam: HEENT: Atraumatic, normocephalic, pupils reactive, negative for conjunctival pallor or scleral icterus, mucous membranes moist, throat clear, neck supple, nontender, trachea midline. Lungs: Clear to auscultation, breath sounds equal bilaterally, chest nontender. Heart: S1S2, regular, negative for clicks, rubs, or JVD. Abdomen: Soft, nondistended, nontender. Negative for masses or hepatosplenomegaly. Negative for costovertebral tenderness. Pelvis: Stable nontender. Genitourinary: Deferred. Rectal: Deferred. Extremities: Atraumatic, negative for cords or calf pain. Neurovascular unremarkable. Neuro: Awake, alert, oriented. Cranial nerves II through XII unremarkable. Cerebellum unremarkable. Motor and sensory unremarkable throughout. Exam nonfocal. 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 - Infectious Disease History Infectious Disease History: Reports: Chicken Pox - Past Surgical History HEENT Surgical History: Reports: Tonsillectomy GI Surgical History: Reports: Appendectomy Musculoskeletal Surgical History: Reports: Other (See Below) Other Musculoskeletal Surgeries/Procedures:: L knee surgery Social & Family History - Family History Family Medical History: Noncontributory Cardiac: Reports: Bypass, High Cholesterol, Hypertension Other Cardiac Family History: cardiac problems in father - Caffeine Use Caffeine Use: Reports: Coffee, Energy Drinks, Tea ED ROS GENERAL - Review of Systems Review Of Systems: See Below ED EXAM, GENERAL - Physical Exam Exam: See Below Course - Vital Signs Last Recorded V/S: Last Vital Signs Temp 97.9 F 04/29/19 18:03 Pulse 66 04/29/19 19:27 Resp 18 04/29/19 18:23 BP 147/101 H 04/29/19 19:27 Pulse Ox 100 04/29/19 19:27 - Orders/Labs/Meds Orders: Active Orders 24 hr Category Date Time Status EKG Documentation Completion [RC] STAT Care 04/29/19 18:03 Active UA RFX AB AND CULT IF INDIC [URIN] Stat Lab 04/29/19 19:19 Received Nitroglycerin [Nitrostat] Med 04/29/19 18:07 Active 0.4 mg SL Q5M PRN Medication Orders Nitroglycerin (Nitrostat) 0.4 mg SL Q5M PRN PRN Reason: Chest Pain Last Admin: 04/29/19 18:16 Dose: 0.4 mg Labs: Laboratory Tests 04/29/19 04/29/19 Range/Units 18:05 18:05 WBC 9.59 (4.0-11.0) K/uL RBC 4.49 (4.30-5.90) M/uL Hgb 14.3 (12.0-16.0) g/dL Hct 41.9 (36.0-46.0) % MCV 93.3 (80.0-98.0) fL MCH 31.8 (27.0-32.0) pg MCHC 34.1 (31.0-37.0) g/dL RDW Std Deviation 41.4 (28.0-62.0) fl RDW Coeff of Natalie 12 (11.0-15.0) % Plt Count 240 (150-400) K/uL MPV 10.10 (7.40-12.00) fL Neut % (Auto) 45.2 L (48.0-80.0) % Lymph % (Auto) 43.9 H (16.0-40.0) % [place] % (Auto) 8.1 (0.0-15.0) % Eos % (Auto) 2.4 (0.0-7.0) % Baso % (Auto) 0.4 (0.0-1.5) % Neut # (Auto) 4.3 (1.4-5.7) K/uL Lymph # (Auto) 4.2 H (0.6-2.4) K/uL [place] # (Auto) 0.8 (0.0-0.8) K/uL Eos # (Auto) 0.2 (0.0-0.7) K/uL Baso # (Auto) 0.0 (0.0-0.1) K/uL Nucleated RBC % 0.0 /100WBC Nucleated RBCs # 0 K/uL Sodium 139 (136-145) mmol/L Potassium 3.7 (3.5-5.1) mmol/L Chloride 102 (98-107) mmol/L Carbon Dioxide 24.5 (21.0-32.0) mmol/L BUN 15 (7.0-18.0) mg/dL Creatinine 0.9 (0.6-1.0) mg/dL Est Cr Clr Drug Dosing TNP Estimated GFR (MDRD) > 60.0 ml/min Glucose 95 (74-106) mg/dL Calcium 8.8 (8.5-10.1) mg/dL Total Bilirubin 0.9 (0.2-1.0) mg/dL AST 17 (15-37) IU/L ALT 28 (14-63) IU/L Alkaline Phosphatase 75 (46-116) U/L Troponin I < 0.050 (0.000-0.056) ng/mL Total Protein 7.3 (6.4-8.2) g/dL Albumin 4.2 (3.4-5.0) g/dL Globulin 3.1 (2.6-4.0) g/dL Albumin/Globulin Ratio 1.4 (0.9-1.6) Meds: Medications Generic Name Dose Route Start Last Admin Trade Name Freq PRN Reason Stop Dose Admin Nitroglycerin 0.4 mg 04/29/19 18:07 04/29/19 18:16 Nitrostat SL 0.4 mg Q5M PRN Administration Chest Pain Discontinued Medications Generic Name Dose Route Start Last Admin Trade Name Freq PRN Reason Stop Dose Admin Aspirin 324 mg 04/29/19 18:04 04/29/19 18:13 Aspirin PO 04/29/19 18:05 324 mg ONETIME ONE Administration Sodium Chloride 1,000 mls @ 999 mls/hr 04/29/19 18:04 04/29/19 18:13 Normal Saline IV 04/29/19 19:04 999 mls/hr STAT ONE Administration Departure - Departure Time of Disposition: 19:29 Disposition: Home, Self-Care 01 Condition: Good Clinical Impression: Atypical chest pain Clinical Impression: (Ruled Out): Chest pain - Discharge Information Referrals: Oumar Levy MD [Primary Care Provider] - Forms: ED Department Discharge Additional Instructions: Continue current medications as directed Return if symptoms persist or worsen Follow-up with primary care as needed Follow-up with cardiology as scheduled on The following information is given to patients seen in the emergency department who are being discharged to home. This information is to outline your options for follow-up care. We provide all patients seen in our emergency department with a follow-up referral. The need for follow-up, as well as the timing and circumstances, are variable depending upon the specifics of your emergency department visit. If you don't have a primary care physician on staff, we will provide you with a referral. We always advise you to contact your personal physician following an emergency department visit to inform them of the circumstance of the visit and for follow-up with them and/or the need for any referrals to a consulting specialist. The emergency department will also refer you to a specialist when appropriate. This referral assures that you have the opportunity for follow-up care with a specialist. All of these measure are taken in an effort to provide you with optimal care, which includes your follow-up. Under all circumstances we always encourage you to contact your private physician who remains a resource for coordinating your care. When calling for follow-up care, please make the office aware that this follow-up is from your recent emergency room visit. If for any reason you are refused follow-up, please contact the [facility] emergency department at and asked to speak to the emergency department charge nurse. - My Orders Last 24 Hours: My Active Orders 04/29/19 18:03 EKG Documentation Completion [RC] STAT 04/29/19 18:07 Nitroglycerin [Nitrostat] 0.4 mg SL Q5M PRN 04/29/19 19:19 UA RFX AB AND CULT IF INDIC [URIN] Stat - Assessment/Plan Last 24 Hours: My Active Orders 04/29/19 18:03 EKG Documentation Completion [RC] STAT 04/29/19 18:07 Nitroglycerin [Nitrostat] 0.4 mg SL Q5M PRN 04/29/19 19:19 UA RFX AB AND CULT IF INDIC [URIN] Stat
[2019-04-29] MEDS ORDERED: Nitroglycerin 0.4 MG Tab.SL SL PRN (18:07)
--- NOTE | 2019-04-29 18:37 | CR ---
Indication: Chest pain. Technique: Single AP portable view of the chest was obtained. Comparison: January 15, 2019. Findings: The heart is normal in size. The lungs are clear. No infiltrate, pleural effusion, or pneumothorax is identified. Impression: No acute cardiopulmonary process. Dictated by Alma Vincent MD @ Apr 29 2019 6:36PM Signed by Dr. Alma Vincent @ Apr 29 2019 6:36PM
[2019-04-29 18:50] LABS: BLOOD UREA NITROGEN,BUN 15 mg/dL (7.0-18.0); CARBON DIOXIDE,CO2 24.5 mmol/L (21.0-32.0); CHLORIDE,CL 102 mmol/L (98-107); GLUCOSE RANDOM 95 mg/dL (74-106); POTASSIUM,K 3.7 mmol/L (3.5-5.1); SODIUM,NA 139 mmol/L (136-145)
[2019-04-29] MEDS ORDERED: Metoprolol Tartrate 5 MG/5 ML SDV IVPUSH ONE (19:30)
== END 2019-04-29 20:00 | disposition home or self-care (01) ==
LOC: MW.ED 17:58
DX: R07.89 Other chest pain (principal); I25.2 Old myocardial infarction; Z79.02 Long term (current) use of antithrombotics/antiplatelets
CPT/HCPCS: 71045; 80053; 81001; 84484; 85025; 87086; 93005; 96361; 96374; 99285; A9270; J3490; J7040; 99283

== ENCOUNTER 2019-06-24 12:10 | Emergency (ER) | payer OTHER ==
[2019-06-24] MEDS ORDERED: Sodium Chloride 0.9% 2.5 ML Syringe FLUSH PRN (12:19)
[2019-06-24] MEDS ORDERED: Sodium Chloride 0.9% 10 ML Syringe FLUSH PRN (12:19)
[2019-06-24] MEDS ORDERED: Aspirin 81 MG Tab.Chew PO ONE (12:20)
--- NOTE | 2019-06-24 12:23 | EDM.PDOC ---
ED HPI GENERAL MEDICAL PROBLEM - General Chief Complaint: Chest Pain Stated Complaint: CHEST PAIN Time Seen by Provider: 06/24/19 12:11 Source of Information: Reports: Patient History Limitations: Reports: No Limitations - History of Present Illness INITIAL COMMENTS - FREE TEXT/NARRATIVE: HISTORY AND PHYSICAL: History of present illness: Patient is a 48-year-old female who presents to the ED today with concern of chest pain since about 8 this morning. Patient states she did take 3 doses of baby aspirin and nitroglycerin after the onset of chest pain. Patient states she did have relief of her chest pain with nitroglycerin briefly but it didn't return. Patient states she did have 2 stents placed in December of this year due to a heart attack in [place]. Patient states that her chest pain today is more sharp than when she had the pain in December. Patient denies any other health history or any other symptoms or concerns. Patient denies fever, chills, shortness of breath, or cough. Denies headache, neck stiff ness, change in vision, syncope, or near syncope. Denies nausea, vomiting, abdominal pain, diarrhea, constipation, or dysuria. Has not noted any blood in urine or stool. Patient has been eating and drinking appropriately. Review of systems: As per history of present illness and below otherwise all systems reviewed and negative. Past medical history: As per history of present illness and as reviewed below otherwise noncontributory. Surgical history: As per history of present illness and as reviewed below otherwise noncontributory. Social history: See social history for further information Family history: As per history of present illness and as reviewed below otherwise noncontributory. Physical exam: General: Patient is alert, oriented, and in no acute distress. Patient sitting comfortably on exam table. HEENT: Atraumatic, normocephalic, pupils equal and reactive bilaterally, negative for conjunctival pallor or scleral icterus, mucous membranes moist, TMs normal bilaterally, throat clear, neck supple, nontender, trachea midline. No drooling or trismus noted. No meningeal signs. No hot potato voice noted. Lungs: Clear to auscultation, breath sounds equal bilaterally, chest nontender. Heart: S1S2, regular rate and rhythm without overt murmur Abdomen: Soft, nondistended, nontender. Negative for masses or hepatosplenomegaly. Negative for costovertebral tenderness. Pelvis: Stable nontender. Genitourinary: Deferred. Rectal: Deferred. Skin: Intact, warm, dry. No lesions or rashes noted. Extremities: Atraumatic, negative for cords or calf pain. Neurovascular unremarkable. Neuro: Awake, alert, oriented. Cranial nerves II through XII unremarkable. Cerebellum unremarkable. Motor and sensory unremarkable throughout. Exam nonfocal. Notes: Admission for observation was offered to patient but she declines at this time. All risks versus benefits discussed with patient and expresses understanding. Voices understanding and is agreeable to plan of care. Denies any further questions or concerns at this time. Diagnostics: CBC, CMP, UA, EKG, chest x-ray, troponin, lipase Therapeutics: Saline lock, ASA, Nitro Prescription: None Impression: Chest pain Plan: 1. You can alternate ibuprofen and Tylenol as directed for pain and discomfort. 2. Follow-up with your primary care provider and binding end stitcher as discussed. Return to the ED as needed and as discussed. Definitive disposition and diagnosis as appropriate pending reevaluation and review of above. Left Chest Pain Score (Numeric/FACES): 5 - Related Data Allergies Allergy/AdvReac Type Severity Reaction Status Date / Time No Known Allergies Allergy Verified 06/24/19 12:17 Home Meds: Home Meds Clopidogrel [Plavix] 02/28/19 [History] Metoprolol Succinate [Toprol XL] 02/28/19 [History] Rosuvastatin [Crestor] 02/28/19 [History] Isosorbide Mononitrate 06/24/19 [History] Past Medical History Cardiovascular History: Reports: High Cholesterol, [place], Stents Other Cardiovascular History: PT reports stents placed in [place] 2019 Gastrointestinal History: Reports: Other (See Below) Other Gastrointestinal History: pt c/o of having heartburn for the last week 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: , 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 Below) 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 - Infectious Disease History Infectious Disease History: Reports: Chicken Pox - Past Surgical History HEENT Surgical History: Reports: Tonsillectomy GI Surgical History: Reports: Appendectomy Musculoskeletal Surgical History: Reports: Other (See Below) Other Musculoskeletal Surgeries/Procedures:: L knee surgery Social & Family History - Family History Family Medical History: Noncontributory Cardiac: Reports: Bypass, High Cholesterol, Hypertension Other Cardiac Family History: cardiac problems in father - Tobacco Use Smoking Status *Q: Current Every Day Smoker Years of Tobacco use: 20 Packs/Tins Daily: 0.2 - Caffeine Use Caffeine Use: Reports: Coffee, Energy Drinks, Tea - Recreational Drug Use Recreational Drug Use: No ED ROS GENERAL - Review of Systems Review Of Systems: Comprehensive ROS is negative, except as noted in HPI. ED EXAM, GENERAL - Physical Exam Exam: See Below (see dictation) Course - Vital Signs Last Recorded V/S: Last Vital Signs Temp 97.3 F 06/24/19 12:12 Pulse 75 06/24/19 13:00 Resp 10 L 06/24/19 13:00 BP 119/79 06/24/19 13:02 Pulse Ox 94 L 06/24/19 13:00 - Orders/Labs/Meds Orders: Active Orders 24 hr Category Date Time Status EKG Documentation Completion [RC] STAT Care 06/24/19 12:12 Active HCG QUALITATIVE,URINE [URCHEM] Stat Lab 06/24/19 12:20 Ordered UA RFX AB AND CULT IF INDIC [URIN] Stat Lab 06/24/19 12:19 Ordered Sodium Chloride 0.9% [Saline Flush] Med 06/24/19 12:19 Active 10 ml FLUSH ASDIRECTED PRN Sodium Chloride 0.9% [Saline Flush] Med 06/24/19 12:19 Active 2.5 ml FLUSH ASDIRECTED PRN Saline Lock Insert [OM.PC] Stat Oth 06/24/19 12:19 Ordered Medication Orders Sodium Chloride (Saline Flush) 10 ml FLUSH ASDIRECTED PRN PRN Reason: Keep Vein Open Last Admin: 06/24/19 12:34 Dose: 10 ml Sodium Chloride (Saline Flush) 2.5 ml FLUSH ASDIRECTED PRN PRN Reason: Keep Vein Open Last Admin: 06/24/19 12:34 Dose: 2.5 ml Labs: Laboratory Tests 06/24/19 06/24/19 06/24/19 Range/Units 12:20 12:20 12:20 WBC 7.65 (4.0-11.0) K/uL RBC 4.49 (4.30-5.90) M/uL Hgb 14.1 (12.0-16.0) g/dL Hct 41.2 (36.0-46.0) % MCV 91.8 (80.0-98.0) fL MCH 31.4 (27.0-32.0) pg MCHC 34.2 (31.0-37.0) g/dL RDW Std Deviation 42.6 (28.0-62.0) fl RDW Coeff of Natalie 13 (11.0-15.0) % Plt Count 281 (150-400) K/uL MPV 10.10 (7.40-12.00) fL Neut % (Auto) 57.9 (48.0-80.0) % Lymph % (Auto) 32.2 (16.0-40.0) % Barnwell % (Auto) 7.2 (0.0-15.0) % Eos % (Auto) 2.2 (0.0-7.0) % Baso % (Auto) 0.5 (0.0-1.5) % Neut # (Auto) 4.4 (1.4-5.7) K/uL Lymph # (Auto) 2.5 H (0.6-2.4) K/uL Barnwell # (Auto) 0.6 (0.0-0.8) K/uL Eos # (Auto) 0.2 (0.0-0.7) K/uL Baso # (Auto) 0.0 (0.0-0.1) K/uL Nucleated RBC % 0.0 /100WBC Nucleated RBCs # 0 K/uL INR 0.95 Sodium 137 (136-145) mmol/L Potassium 4.2 (3.5-5.1) mmol/L Chloride 103 (98-107) mmol/L Carbon Dioxide 24.2 (21.0-32.0) mmol/L BUN 13 (7.0-18.0) mg/dL Creatinine 0.8 (0.6-1.0) mg/dL Est Cr Clr Drug Dosing 64.89 mL/min Estimated GFR (MDRD) > 60.0 ml/min Glucose 101 (74-106) mg/dL Calcium 8.7 (8.5-10.1) mg/dL Total Bilirubin 0.8 (0.2-1.0) mg/dL AST 19 (15-37) IU/L ALT 28 (14-63) IU/L Alkaline Phosphatase 82 (46-116) U/L Troponin I < 0.050 (0.000-0.056) ng/mL Total Protein 7.3 (6.4-8.2) g/dL Albumin 4.2 (3.4-5.0) g/dL Globulin 3.1 (2.6-4.0) g/dL Albumin/Globulin Ratio 1.4 (0.9-1.6) Lipase 63 L (73-393) U/L Meds: Medications Generic Name Dose Route Start Last Admin Trade Name Freq PRN Reason Stop Dose Admin Sodium Chloride 10 ml 06/24/19 12:19 06/24/19 12:34 Saline Flush FLUSH 10 ml ASDIRECTED PRN Administration Keep Vein Open Sodium Chloride 2.5 ml 06/24/19 12:19 06/24/19 12:34 Saline Flush FLUSH 2.5 ml ASDIRECTED PRN Administration Keep Vein Open Discontinued Medications Generic Name Dose Route Start Last Admin Trade Name Freq PRN Reason Stop Dose Admin Aspirin 81 mg 06/24/19 12:20 06/24/19 12:33 Aspirin PO 06/24/19 12:21 81 mg ONETIME ONE Administration Nitroglycerin 0.4 mg 06/24/19 12:21 06/24/19 13:02 Nitrostat SL 0.4 mg Q5M PRN Administration Chest Pain Departure - Departure Time of Disposition: 13:32 Disposition: Home, Self-Care 01 Clinical Impression: Chest pain Qualifiers: Chest pain type: unspecified Qualified Code(s): R07.9 - Chest pain, unspecified - Discharge Information Forms: ED Department Discharge Additional Instructions: The following information is given to patients seen in the emergency department who are being discharged to home. This information is to outline your options for follow-up care. We provide all patients seen in our emergency department with a follow-up referral. The need for follow-up, as well as the timing and circumstances, are variable depending upon the specifics of your emergency department visit. If you don't have a primary care physician on staff, we will provide you with a referral. We always advise you to contact your personal physician following an emergency department visit to inform them of the circumstance of the visit and for follow-up with them and/or the need for any referrals to a consulting specialist. The emergency department will also refer you to a specialist when appropriate. This referral assures that you have the opportunity for follow-up care with a specialist. All of these measure are taken in an effort to provide you with optimal care, which includes your follow-up. Under all circumstances we always encourage you to contact your private physician who remains a resource for coordinating your care. When calling for follow-up care, please make the office aware that this follow-up is from your recent emergency room visit. If for any reason you are refused follow-up, please contact the [facility] at and asked to speak to the emergency department charge nurse. [facility] [address] [place] [id number] [facility] [address] [place] [id number] 1. You can alternate ibuprofen and Tylenol as directed for pain and discomfort. 2. Follow-up with your primary care provider and binding end stitcher as discussed. Return to the ED as needed and as discussed. - My Orders Last 24 Hours: My Active Orders 06/24/19 12:12 EKG Documentation Completion [RC] STAT 06/24/19 12:19 UA RFX AB AND CULT IF INDIC [URIN] Stat Sodium Chloride 0.9% [Saline Flush] 10 ml FLUSH ASDIRECTED PRN Sodium Chloride 0.9% [Saline Flush] 2.5 ml FLUSH ASDIRECTED PRN Saline Lock Insert [OM.PC] Stat 06/24/19 12:20 HCG QUALITATIVE,URINE [URCHEM] Stat - Assessment/Plan Last 24 Hours: My Active Orders 06/24/19 12:12 EKG Documentation Completion [RC] STAT 06/24/19 12:19 UA RFX AB AND CULT IF INDIC [URIN] Stat Sodium Chloride 0.9% [Saline Flush] 10 ml FLUSH ASDIRECTED PRN Sodium Chloride 0.9% [Saline Flush] 2.5 ml FLUSH ASDIRECTED PRN Saline Lock Insert [OM.PC] Stat 06/24/19 12:20 HCG QUALITATIVE,URINE [URCHEM] Stat
[2019-06-24] MEDS: Nitroglycerin 0.4 MG Tab.SL SL PRN ×3 (12:33→13:02)
--- NOTE | 2019-06-24 13:12 | CR ---
Chest: Portable view of the chest was obtained. Comparison: No previous chest x-ray. Multiple overlying monitor leads are seen. Heart size and mediastinum are normal. Lungs are clear with no acute parenchymal change. Bony structures are grossly intact. Impression: Nothing acute is appreciated on portable chest x-ray. Diagnostic code #2 MTDD
[2019-06-24 13:16] LABS: BLOOD UREA NITROGEN,BUN 13 mg/dL (7.0-18.0); CARBON DIOXIDE,CO2 24.2 mmol/L (21.0-32.0); CHLORIDE,CL 103 mmol/L (98-107); GLUCOSE RANDOM 101 mg/dL (74-106); LIPASE 63 U/L (73-393); POTASSIUM,K 4.2 mmol/L (3.5-5.1); SODIUM,NA 137 mmol/L (136-145)
== END 2019-06-24 13:41 | disposition home or self-care (01) ==
LOC: MW.ED 12:10
DX: R07.9 Chest pain, unspecified (principal); I25.2 Old myocardial infarction; E78.00 Pure hypercholesterolemia, unspecified; F17.210 Nicotine dependence, cigarettes, uncomplicated; Z79.02 Long term (current) use of antithrombotics/antiplatelets; Z79.899 Other long term (current) drug therapy; Z95.5 Presence of coronary angioplasty implant and graft
CPT/HCPCS: 36415; 71045; 80053; 83690; 84484; 85025; 85610; 93005; 99285; A9270; 99284

== ENCOUNTER 2019-07-20 14:05 | Observation (INO) | payer OTHER ==
[2019-07-20] MEDS ORDERED: Ondansetron 4 MG/2 ML SDV IVPUSH ONE (14:19)
[2019-07-20] MEDS ORDERED: Sodium Chloride 0.9% 2.5 ML Syringe FLUSH PRN (14:21)
[2019-07-20] MEDS ORDERED: Sodium Chloride 0.9% 10 ML Syringe FLUSH PRN (14:21)
[2019-07-20] MEDS ORDERED: Nitroglycerin 2% Oint 1 GM UD Packet TOP ONE (14:21)
[2019-07-20] MEDS ORDERED: Morphine 4 MG/ML Syringe IVPUSH ONE (14:24)
--- NOTE | 2019-07-20 14:33 | EDM.PDOC ---
ED HPI GENERAL MEDICAL PROBLEM - General Chief Complaint: Chest Pain Stated Complaint: CHEST PAIN Time Seen by Provider: 07/20/19 14:15 Source of Information: Reports: Patient History Limitations: Reports: No Limitations - History of Present Illness INITIAL COMMENTS - FREE TEXT/NARRATIVE: This 48 year old female is admitted to the ED today complaining of substernal chest pain with pain into her left arm since 9:00AM this morning. She is status post IA, December, and had stents placed in by Dr. Petersen. She states that the pain is similar. She states that she took a total of 3 sublingual Nitros. She states that she got relief of her pain from the first two but when she took the third one about one hour ago she DID NOT get any relief. She also complains of left jaw pain. She complains of mild nausea but no vomiting. She complains of mild diaphoresis. Onset: Sudden (9:00AM this morning) Duration: Constant (since 9:00AM) Location: Reports: Chest (Chest pain as noted above.) Quality: Reports: Pressure, Sharp Severity: Moderate Improves with: Reports: Medication (Nitro initially.) Worsens with: Reports: None Context: Reports: Activity Associated Symptoms: Reports: Chest Pain, Nausea/Vomiting, Shortness of Breath. Denies: Syncope, Weakness Left Chest Pain Score (Numeric/FACES): 3 - Related Data Allergies Allergy/AdvReac Type Severity Reaction Status Date / Time No Known Allergies Allergy Verified 07/20/19 14:09 Home Meds: Home Meds Clopidogrel [Plavix] 75 mg PO DAILY 02/28/19 [History] Metoprolol Succinate [Toprol XL] 25 mg PO DAILY 02/28/19 [History] Rosuvastatin [Crestor] 5 mg PO DAILY 02/28/19 [History] Isosorbide Mononitrate 20 mg PO DAILY 06/24/19 [History] Nitroglycerin 0.3 mg PO ASDIRECTED 07/20/19 [History] Past Medical History Cardiovascular History: Reports: High Cholesterol, [place], Stents Other Cardiovascular History: PT reports stents placed in [place] 2018 Gastrointestinal History: Reports: Other (See Below) Other Gastrointestinal History: pt c/o of having heartburn for the 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: , 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 - Infectious Disease History Infectious Disease History: Reports: Chicken Pox - Past Surgical History HEENT Surgical History: Reports: Tonsillectomy GI Surgical History: Reports: Appendectomy Musculoskeletal Surgical History: Reports: Other (See Below) Other Musculoskeletal Surgeries/Procedures:: L knee surgery Social & Family History - Family History Family Medical History: Noncontributory Cardiac: Reports: Bypass, High Cholesterol, Hypertension Other Cardiac Family History: cardiac problems in father - Tobacco Use Smoking Status *Q: Former Smoker Used Tobacco, but Quit: Yes Month/Year Tobacco Last Used: 2018 - Caffeine Use Caffeine Use: Reports: Coffee - Recreational Drug Use Recreational Drug Use: No ED ROS GENERAL - Review of Systems Review Of Systems: See Below Constitutional: Reports: Diaphoresis (mild) HEENT: Reports: No Symptoms Respiratory: Reports: Shortness of Breath (mild SOB) Cardiovascular: Reports: Chest Pain (severe substernal chest pain with pain into the left arm.). Denies: Orthopnea, Palpitations, Syncope Endocrine: Reports: No Symptoms GI/Abdominal: Reports: Nausea : Reports: No Symptoms Musculoskeletal: Reports: Other (pain into left arm and jaw.) Neurological: Reports: No Symptoms Psychiatric: Reports: No Symptoms Hematologic/Lymphatic: Reports: No Symptoms Immunologic: Reports: No Symptoms ED EXAM, GENERAL - Physical Exam Exam: See Below Free Text/Narrative:: This 48 year old female is admitted to the ED today complaining of substernal chest pain with pain into her left arm since 9:00AM this morning. She is status post IA, December, and had stents placed in by Dr. Petersen. She states that the pain is similar. She states that she took a total of 3 sublingual Nitros. She states that she got relief of her pain from the first two but when she took the third one about one hour ago she DID NOT get any relief. She also complains of left jaw pain. She complains of mild nausea but no vomiting. She complains of mild diaphoresis. I discussed this with the Resident for Dr. lindo and he agrees with the admission. She has a HEART score of: 5. The patient agrees with the admission. Exam Limited By: No Limitations General Appearance: Moderate Distress (complaining of chest pain.) Eye Exam: Bilateral Eye: Normal Fundi, Normal Inspection, PERRL Ears: Normal External Exam, Normal Canal, Hearing Grossly Normal, Normal TMs Ear Exam: Bilateral Ear: Auricle Normal, Canal Normal, TM normal Nose: Normal Inspection, Normal Mucosa, No Blood Throat/Mouth: Normal Inspection, Normal Lips, Normal Teeth, Normal Gums, Normal Oropharynx, Normal Voice, No Airway Compromise Head: Atraumatic, Normocephalic Neck: Normal Inspection, Supple, Non-Tender, Full Range of Motion. No: Carotid Bruit, Lymphadenopathy (L), Lymphadenopathy (R), Thyromegaly Respiratory/Chest: Lungs Clear, Normal Breath Sounds. No: Rales, Rhonchi, Wheezing Cardiovascular: Normal Peripheral Pulses, Regular Rate, Rhythm, No Edema, No Gallop, No JVD, No Murmur, No Rub Peripheral Pulses: 3+: Radial (L), Radial (R), Dorsalis Pedis (L), Dorsalis Pedis (R), 4+: Carotid (L), Carotid (R) GI/Abdominal: Normal Bowel Sounds, Soft, Non-Tender, No Organomegaly, No Distention, No Abnormal Bruit, No Mass Back Exam: Normal Inspection, Full Range of Motion, NT Extremities: Normal Inspection, Normal Range of Motion, Non-Tender, Normal Capillary Refill, No Pedal Edema Neurological: Alert, Oriented, CN II-XII Intact, Normal Cognition, Normal Gait, Normal Reflexes, No Motor/Sensory Deficits Psychiatric: Normal Affect, Normal Mood Skin Exam: Warm, Dry, Intact, Normal Color, No Rash Lymphatic: No Adenopathy Course - Vital Signs Last Recorded V/S: Last Vital Signs Temp 97.3 F 07/20/19 14:10 Pulse 74 07/20/19 15:00 Resp 18 07/20/19 15:00 BP 104/68 07/20/19 15:00 Pulse Ox 98 07/20/19 15:00 - Orders/Labs/Meds Orders: Active Orders 24 hr Category Date Time Status Cardiac Monitoring [RC] . DIRECTED Care 07/20/19 14:21 Active EKG Documentation Completion [RC] STAT Care 07/20/19 14:22 Active Oxygen Therapy [RC] ASDIRECTED Care 07/20/19 14:21 Active Pulse Oximetry [RC] ASDIRECTED Care 07/20/19 14:21 Active Chest 1V Frontal [CR] Stat Exams 07/20/19 14:21 Taken Sodium Chloride 0.9% [Normal Saline] 500 ml Med 07/20/19 15:15 Active IV .BOLUS Sodium Chloride 0.9% [Saline Flush] Med 07/20/19 14:21 Active 10 ml FLUSH ASDIRECTED PRN Sodium Chloride 0.9% [Saline Flush] Med 07/20/19 14:21 Active 2.5 ml FLUSH ASDIRECTED PRN Saline Lock Insert [OM.PC] Stat Oth 07/20/19 14:21 Ordered Medication Orders Sodium Chloride (Normal Saline) 500 mls @ 999 mls/hr IV .BOLUS MARISELA Last Admin: 07/20/19 15:16 Dose: 999 mls/hr Sodium Chloride (Saline Flush) 10 ml FLUSH ASDIRECTED PRN PRN Reason: Keep Vein Open Last Admin: 07/20/19 14:39 Dose: 10 ml Sodium Chloride (Saline Flush) 2.5 ml FLUSH ASDIRECTED PRN PRN Reason: Keep Vein Open Last Admin: 07/20/19 14:38 Dose: 2.5 ml Labs: Laboratory Tests 07/20/19 07/20/19 07/20/19 Range/Units 14:15 14:15 14:15 WBC 12.33 H (4.0-11.0) K/uL RBC 4.79 (4.30-5.90) M/uL Hgb 15.1 (12.0-16.0) g/dL Hct 44.3 (36.0-46.0) % MCV 92.5 (80.0-98.0) fL MCH 31.5 (27.0-32.0) pg MCHC 34.1 (31.0-37.0) g/dL RDW Std Deviation 44.0 (28.0-62.0) fl RDW Coeff of Natalie 13 (11.0-15.0) % Plt Count 287 (150-400) K/uL MPV 10.40 (7.40-12.00) fL Neut % (Auto) 74.0 (48.0-80.0) % Lymph % (Auto) 18.2 (16.0-40.0) % Bailey % (Auto) 6.4 (0.0-15.0) % Eos % (Auto) 1.1 (0.0-7.0) % Baso % (Auto) 0.3 (0.0-1.5) % Neut # (Auto) 9.1 H (1.4-5.7) K/uL Lymph # (Auto) 2.3 (0.6-2.4) K/uL Bailey # (Auto) 0.8 (0.0-0.8) K/uL Eos # (Auto) 0.1 (0.0-0.7) K/uL Baso # (Auto) 0.0 (0.0-0.1) K/uL Nucleated RBC % 0.0 /100WBC Nucleated RBCs # 0 K/uL INR 0.98 D-Dimer, Quantitative 0.28 (0.0-0.50) mg/L FEU Sodium 139 (136-145) mmol/L Potassium 3.7 (3.5-5.1) mmol/L Chloride 102 (98-107) mmol/L Carbon Dioxide 27.5 (21.0-32.0) mmol/L BUN 12 (7.0-18.0) mg/dL Creatinine 0.8 (0.6-1.0) mg/dL Est Cr Clr Drug Dosing 64.89 mL/min Estimated GFR (MDRD) > 60.0 ml/min Glucose 102 (74-106) mg/dL Calcium 9.0 (8.5-10.1) mg/dL Total Bilirubin 1.4 H (0.2-1.0) mg/dL AST 20 (15-37) IU/L ALT 36 (14-63) IU/L Alkaline Phosphatase 69 (46-116) U/L Troponin I < 0.050 (0.000-0.056) ng/mL Total Protein 7.4 (6.4-8.2) g/dL Albumin 4.5 (3.4-5.0) g/dL Globulin 2.9 (2.6-4.0) g/dL Albumin/Globulin Ratio 1.6 (0.9-1.6) Meds: Medications Generic Name Dose Route Start Last Admin Trade Name Freq PRN Reason Stop Dose Admin Sodium Chloride 500 mls @ 999 mls/hr 07/20/19 15:15 07/20/19 15:16 Normal Saline IV 999 mls/hr .BOLUS MARISELA Administration Sodium Chloride 10 ml 07/20/19 14:21 07/20/19 14:39 Saline Flush FLUSH 10 ml ASDIRECTED PRN Administration Keep Vein Open Sodium Chloride 2.5 ml 07/20/19 14:21 07/20/19 14:38 Saline Flush FLUSH 2.5 ml ASDIRECTED PRN Administration Keep Vein Open Discontinued Medications Generic Name Dose Route Start Last Admin Trade Name Freq PRN Reason Stop Dose Admin Morphine Sulfate 4 mg 07/20/19 14:24 07/20/19 15:20 Morphine IVPUSH 07/20/19 14:25 Not Given ONETIME ONE Nitroglycerin 0.5 gm 07/20/19 14:21 07/20/19 14:43 Nitro-Bid 2% TOP 07/20/19 14:22 0.5 gm ONETIME ONE Administration Ondansetron HCl 4 mg 07/20/19 14:19 07/20/19 14:39 Zofran IVPUSH 07/20/19 14:20 4 mg ONETIME ONE Administration Departure - Departure Time of Disposition: 15:41 Disposition: Admitted As Inpatient 66 Condition: Fair Clinical Impression: Cardiac chest pain Sepsis Event Note - Evaluation Sepsis Screening Result: No Definite Risk - Focused Exam Vital Signs: Vital Signs Temp Pulse Resp BP Pulse Ox 07/20/19 15:00 74 18 104/68 98 07/20/19 14:10 97.3 F 86 18 131/85 98 Date Exam was Performed: 07/20/19 Time Exam was Performed: 15:22 - My Orders Last 24 Hours: My Active Orders 07/20/19 14:21 Cardiac Monitoring [RC] . DIRECTED Oxygen Therapy [RC] ASDIRECTED Pulse Oximetry [RC] ASDIRECTED Chest 1V Frontal [CR] Stat Sodium Chloride 0.9% [Saline Flush] 10 ml FLUSH ASDIRECTED PRN Sodium Chloride 0.9% [Saline Flush] 2.5 ml FLUSH ASDIRECTED PRN Saline Lock Insert [OM.PC] Stat 07/20/19 14:22 EKG Documentation Completion [RC] STAT 07/20/19 15:15 Sodium Chloride 0.9% [Normal Saline] 500 ml IV .BOLUS - Assessment/Plan Last 24 Hours: My Active Orders 07/20/19 14:21 Cardiac Monitoring [RC] . DIRECTED Oxygen Therapy [RC] ASDIRECTED Pulse Oximetry [RC] ASDIRECTED Chest 1V Frontal [CR] Stat Sodium Chloride 0.9% [Saline Flush] 10 ml FLUSH ASDIRECTED PRN Sodium Chloride 0.9% [Saline Flush] 2.5 ml FLUSH ASDIRECTED PRN Saline Lock Insert [OM.PC] Stat 07/20/19 14:22 EKG Documentation Completion [RC] STAT 07/20/19 15:15 Sodium Chloride 0.9% [Normal Saline] 500 ml IV .BOLUS
[2019-07-20 14:46] LABS: BLOOD UREA NITROGEN,BUN 12 mg/dL (7.0-18.0); CARBON DIOXIDE,CO2 27.5 mmol/L (21.0-32.0); CHLORIDE,CL 102 mmol/L (98-107); GLUCOSE RANDOM 102 mg/dL (74-106); POTASSIUM,K 3.7 mmol/L (3.5-5.1); SODIUM,NA 139 mmol/L (136-145)
[2019-07-20] MEDS: Sodium Chloride 0.9% 500 ML IV SCH ×2 (15:16→20:08)
--- NOTE | 2019-07-20 15:45 | CR ---
HISTORY: Chest pain. FINDINGS: Single AP view of the chest is provided. Comparison is made to previous study dated 06/24/2019. The lungs are clear and there is no evidence for pleural effusion or pneumothorax. Cardiac silhouette size is within normal limits. Dictated by Sivakumar Hankins MD @ Jul 20 2019 3:42PM Signed by Dr. Sivakumar Hankins @ Jul 20 2019 3:44PM
[2019-07-20] MEDS ORDERED: Sodium Chloride 0.9% 500 ML IV SCH (16:00)
[2019-07-20] MEDS ORDERED: Aluminum Hydroxide/Magnesium Hydroxide/Simethicone Susp 30 ML Cup PO ONE (17:31)
[2019-07-20] MEDS: Heparin Sodium 5,000 Units/ML Vial SUBCUT SCH (18:10)
[2019-07-20] MEDS ORDERED: Acetaminophen 325 MG Tab PO PRN (18:35)
[2019-07-20] MEDS ORDERED: Ondansetron 4 MG Tab.DIS PO PRN (18:36)
--- NOTE | 2019-07-20 18:38 | PCM.HP.2 ---
H&P History of Present Illness - General Date of Service: 07/20/19 Admit Problem/Dx: Admission Diagnosis/Problem Admission Diagnosis/Problem Cardiac chest pain - History of Present Illness Initial Comments - Free Text/Narative: Patient is a 48-year-old female with a significant past medical history of myocardial infarction requiring cardiac stent placement back in December 2018, in [facility]. Patient states this morning around 8 AM experiencing some substernal chest pain; mentions not doing anything in particular prior to her chest pain developing; states she was combing her hair after taking a shower for the morning. States the pain at the time was a 6 out of 10 and took 2 nitroglycerin tabs without resolution of symptoms. Upon taking her third nitroglycerin tab along with her aspirin 325; mentions the pain had subsided slightly but continued to remain at a steady plateau. She also had developed some left jaw discomfort as well. Patient denied any other symptoms including shortness of breath. Abdominal pain, lower extremity swelling, nausea and or vomiting. Cannot recall any significant recent changes in her lifestyle including eating/ drinking stooling and or urinating.v Did have a similar episode in [facility] but at the time deferred admission to the hospital. Does endorse having quit smoking 4 weeks prior. Denies any recent excess use of alcohol. ED course: Patient was given 2 boluses of 500 cc normal saline; EKG was within normal limits. Initial troponin was negative. D-dimer was negative. Patient had nitro paste placed; patient endorsing minimal chest pain at this time. Left Chest Pain Score (Numeric/FACES): 3 - Related Data Allergies/Adverse Reactions: Allergies Allergy/AdvReac Type Severity Reaction Status Date / Time No Known Allergies Allergy Verified 07/20/19 17:36 Home Medications: Home Meds Clopidogrel [Plavix] 75 mg PO DAILY 02/28/19 [History] Metoprolol Succinate [Toprol XL] 25 mg PO DAILY 02/28/19 [History] Rosuvastatin [Crestor] 5 mg PO DAILY 02/28/19 [History] Isosorbide Mononitrate 20 mg PO DAILY 06/24/19 [History] Nitroglycerin 0.3 mg PO ASDIRECTED 07/20/19 [History] Past Medical History Cardiovascular History: Reports: High Cholesterol, [place], Stents Other Cardiovascular History: PT reports stents placed in 2018 Gastrointestinal History: Reports: Other (See Below) Other Gastrointestinal History: pt c/o of having heartburn for the last week 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: , 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 (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 Below) Other OB/BYN History: x3 - Infectious Disease History Infectious Disease History: Reports: Chicken Pox - Past Surgical History HEENT Surgical History: Reports: Tonsillectomy GI Surgical History: Reports: Appendectomy Musculoskeletal Surgical History: Reports: Other (See Below) Other Musculoskeletal Surgeries/Procedures:: L knee surgery Social & Family History - Family History Family Medical History: Noncontributory Cardiac: Reports: Bypass, High Cholesterol, Hypertension Other Cardiac Family History: cardiac problems in father - Tobacco Use Smoking Status *Q: Former Smoker Used Tobacco, but Quit: Yes Month/Year Tobacco Last Used: 07/18 Tobacco Use Comment: Patient stated she quit smoking "two weeks ago." - Caffeine Use Caffeine Use: Reports: Coffee, Tea - Recreational Drug Use Recreational Drug Use: No H&P Review of Systems - Review of Systems: Review Of Systems: See Below General: Denies: Fever, Chills, Weakness, Fatigue HEENT: Reports: Headaches. Denies: Post Nasal Drip Pulmonary: Denies: Shortness of Breath, Pleuritic Chest Pain, Cough Cardiovascular: Reports: Chest Pain. Denies: Palpitations, Dyspnea on Exertion , Edema Gastrointestinal: Reports: Constipation. Denies: Abdominal Pain, Diarrhea Genitourinary: Reports: No Symptoms Musculoskeletal: Reports: No Symptoms Skin: Reports: No Symptoms Neurological: Reports: Headache. Denies: Confusion, Dizziness Exam - Exam Exam: See Below - Vital Signs Vital Signs: Last Vital Signs Temp 97.2 F 07/20/19 17:25 Pulse 75 07/20/19 17:25 Resp 16 07/20/19 17:25 BP 123/80 07/20/19 17:25 Pulse Ox 96 07/20/19 17:25 Weight: 156 lb 6.4 oz - Exam Quality Assessment: No: Supplemental Oxygen General: Alert, Oriented HEENT: EOMI Neck: Supple, Trachea Midline Lungs: Clear to Auscultation, Normal Respiratory Effort Cardiovascular: Regular Rate, Regular Rhythm GI/Abdominal Exam: Normal Bowel Sounds, Soft, Non-Tender, No Organomegaly Extremities: Normal Inspection, Non-Tender. No: Pedal Edema Skin: Warm, Dry Neuro Extensive - Mental Status: Alert, Oriented x3, Normal Mood/Affect - Patient Data Lab Results Last 24 hrs: Laboratory Results - last 24 hr 07/20/19 07/20/19 07/20/19 Range/Units 14:15 14:15 14:15 WBC 12.33 H (4.0-11.0) K/uL RBC 4.79 (4.30-5.90) M/uL Hgb 15.1 (12.0-16.0) g/dL Hct 44.3 (36.0-46.0) % MCV 92.5 (80.0-98.0) fL MCH 31.5 (27.0-32.0) pg MCHC 34.1 (31.0-37.0) g/dL RDW Std Deviation 44.0 (28.0-62.0) fl RDW Coeff of Natalie 13 (11.0-15.0) % Plt Count 287 (150-400) K/uL MPV 10.40 (7.40-12.00) fL Neut % (Auto) 74.0 (48.0-80.0) % Lymph % (Auto) 18.2 (16.0-40.0) % [place] % (Auto) 6.4 (0.0-15.0) % Eos % (Auto) 1.1 (0.0-7.0) % Baso % (Auto) 0.3 (0.0-1.5) % Neut # (Auto) 9.1 H (1.4-5.7) K/uL Lymph # (Auto) 2.3 (0.6-2.4) K/uL [place] # (Auto) 0.8 (0.0-0.8) K/uL Eos # (Auto) 0.1 (0.0-0.7) K/uL Baso # (Auto) 0.0 (0.0-0.1) K/uL Nucleated RBC % 0.0 /100WBC Nucleated RBCs # 0 K/uL INR 0.98 D-Dimer, Quantitative 0.28 (0.0-0.50) mg/L FEU Sodium 139 (136-145) mmol/L Potassium 3.7 (3.5-5.1) mmol/L Chloride 102 (98-107) mmol/L Carbon Dioxide 27.5 (21.0-32.0) mmol/L BUN 12 (7.0-18.0) mg/dL Creatinine 0.8 (0.6-1.0) mg/dL Est Cr Clr Drug Dosing 64.89 mL/min Estimated GFR (MDRD) > 60.0 ml/min Glucose 102 (74-106) mg/dL Calcium 9.0 (8.5-10.1) mg/dL Phosphorus (2.6-4.7) mg/dL Magnesium (1.8-2.4) mg/dL Total Bilirubin 1.4 H (0.2-1.0) mg/dL AST 20 (15-37) IU/L ALT 36 (14-63) IU/L Alkaline Phosphatase 69 (46-116) U/L Troponin I < 0.050 (0.000-0.056) ng/mL Total Protein 7.4 (6.4-8.2) g/dL Albumin 4.5 (3.4-5.0) g/dL Globulin 2.9 (2.6-4.0) g/dL Albumin/Globulin Ratio 1.6 (0.9-1.6) TSH 3rd Generation (0.36-3.74) uIU/mL 07/20/19 07/20/19 07/20/19 Range/Units 14:15 14:15 17:36 WBC (4.0-11.0) K/uL RBC (4.30-5.90) M/uL Hgb (12.0-16.0) g/dL Hct (36.0-46.0) % MCV (80.0-98.0) fL MCH (27.0-32.0) pg MCHC (31.0-37.0) g/dL RDW Std Deviation (28.0-62.0) fl RDW Coeff of Natalie (11.0-15.0) % Plt Count (150-400) K/uL MPV (7.40-12.00) fL Neut % (Auto) (48.0-80.0) % Lymph % (Auto) (16.0-40.0) % [place] % (Auto) (0.0-15.0) % Eos % (Auto) (0.0-7.0) % Baso % (Auto) (0.0-1.5) % Neut # (Auto) (1.4-5.7) K/uL Lymph # (Auto) (0.6-2.4) K/uL [place] # (Auto) (0.0-0.8) K/uL Eos # (Auto) (0.0-0.7) K/uL Baso # (Auto) (0.0-0.1) K/uL Nucleated RBC % /100WBC Nucleated RBCs # K/uL INR D-Dimer, Quantitative (0.0-0.50) mg/L FEU Sodium (136-145) mmol/L Potassium (3.5-5.1) mmol/L Chloride (98-107) mmol/L Carbon Dioxide (21.0-32.0) mmol/L BUN (7.0-18.0) mg/dL Creatinine (0.6-1.0) mg/dL Est Cr Clr Drug Dosing mL/min Estimated GFR (MDRD) ml/min Glucose (74-106) mg/dL Calcium (8.5-10.1) mg/dL Phosphorus 3.6 (2.6-4.7) mg/dL Magnesium 1.7 L (1.8-2.4) mg/dL Total Bilirubin (0.2-1.0) mg/dL AST (15-37) IU/L ALT (14-63) IU/L Alkaline Phosphatase (46-116) U/L Troponin I < 0.050 (0.000-0.056) ng/mL Total Protein (6.4-8.2) g/dL Albumin (3.4-5.0) g/dL Globulin (2.6-4.0) g/dL Albumin/Globulin Ratio (0.9-1.6) TSH 3rd Generation 1.81 (0.36-3.74) uIU/mL Result Diagrams: 07/20/19 14:15 07/20/19 14:15 Sepsis Event Note - Evaluation Sepsis Screening Result: No Definite Risk - Focused Exam Vital Signs: Vital Signs Temp Pulse Resp BP Pulse Ox Pulse Ox 07/20/19 17:25 97.2 F 75 16 123/80 96 96 07/20/19 15:45 71 20 99/64 98 07/20/19 15:30 64 18 99/61 98 07/20/19 15:15 66 17 103/66 96 07/20/19 15:10 84 20 109/64 98 07/20/19 15:00 71 16 101/67 96 07/20/19 14:10 97.3 F 86 18 131/85 98 Date Exam was Performed: 07/20/19 Time Exam was Performed: : Problem List Initiated/Reviewed/Updated: Yes Orders Last 24hrs: Active Orders 24 hr Category Date Time Status Admission Status [Patient Status] [ADT] Stat ADT 07/20/19 16:10 Active Cardiac Monitoring [RC] . DIRECTED Care 07/20/19 14:21 Active EKG Documentation Completion [RC] STAT Care 07/20/19 14:22 Active Oxygen Therapy [RC] ASDIRECTED Care 07/20/19 14:21 Active Pulse Oximetry [RC] ASDIRECTED Care 07/20/19 14:21 Active Up ad Zoey [RC] ASDIRECTED Care 07/20/19 17:30 Active Heart Healthy Diet [DIET] Diet 07/20/19 Lunch Active CBC WITH AUTO DIFF [HEME] AM Lab 07/21/19 05:11 Ordered COMPREHENSIVE METABOLIC PN,CMP [CHEM] AM Lab 07/21/19 05:11 Ordered MAGNESIUM [CHEM] AM Lab 07/21/19 05:11 Ordered TROPONIN I [CHEM] Routine Lab 07/20/19 20:00 Ordered Acetaminophen [Tylenol] Med 07/20/19 18:35 Active 650 mg PO Q4H PRN Heparin Sodium Med 07/20/19 17:30 Active 5,000 units SUBCUT Q8H Omeprazole Med 07/21/19 07:30 Active 20 mg PO ACBREAKFAST Ondansetron [Zofran ODT] Med 07/20/19 18:36 Active 4 mg PO Q4H PRN Sodium Chloride 0.9% [Normal Saline] 500 ml Med 07/20/19 15:15 Active IV .BOLUS Sodium Chloride 0.9% [Normal Saline] 500 ml Med 07/20/19 16:00 Active IV .BOLUS Sodium Chloride 0.9% [Saline Flush] Med 07/20/19 14:21 Active 10 ml FLUSH ASDIRECTED PRN Sodium Chloride 0.9% [Saline Flush] Med 07/20/19 14:21 Active 2.5 ml FLUSH ASDIRECTED PRN Saline Lock Insert [OM.PC] Stat Oth 07/20/19 14:21 Ordered Code Status [Resuscitation Status] Routine Resus Stat 07/20/19 17:18 Ordered Medication Orders Acetaminophen (Tylenol) 650 mg PO Q4H PRN PRN Reason: Pain Heparin Sodium (Porcine) (Heparin Sodium) 5,000 units SUBCUT Q8H [facility] Last Admin: 07/20/19 18:10 Dose: 5,000 units Sodium Chloride (Normal Saline) 500 mls @ 999 mls/hr IV .BOLUS [facility] Last Admin: 07/20/19 15:16 Dose: 999 mls/hr Sodium Chloride (Normal Saline) 500 mls @ 999 mls/hr IV .BOLUS [facility] Last Admin: 07/20/19 16:00 Dose: 999 mls/hr Omeprazole (Omeprazole) 20 mg PO ACBREAKFAST [facility] Ondansetron HCl (Zofran Odt) 4 mg PO Q4H PRN PRN Reason: Nausea/Vomiting Sodium Chloride (Saline Flush) 10 ml FLUSH ASDIRECTED PRN PRN Reason: Keep Vein Open Last Admin: 07/20/19 14:39 Dose: 10 ml Sodium Chloride (Saline Flush) 2.5 ml FLUSH ASDIRECTED PRN PRN Reason: Keep Vein Open Last Admin: 07/20/19 14:38 Dose: 2.5 ml Assessment/Plan Comment:: Assessment: 1. Chest pain/ACS rule out in patient with previous history of [place] with cardiac stents placed 2. Previous history of chronic tobacco abuse. 3. Leukocytosis: most likely reactive Plan: Admit to observation/full code/activity up ad zoey./telemetry/DVT prophylaxis: Lovenox 40/GI prophylaxis: Pantoprazole 40 1. We will continue to trend troponin; considering significant cardiac history we will trend at every 3 hours x 3 doses. Chest x-ray was negative. EKG was sinus without any ST elevations; however patient does have a history of normal EKG w/ CP. 2. Order a UA and a TSH. 3. Leukocytosis: Most likely reactive at this time however will order a UA. Continue to monitor
[2019-07-20] MEDS ORDERED: Sodium Chloride 0.9% 500 ML IV ONE ×2 (19:14→23:56)
[2019-07-20] MEDS ORDERED: Morphine 2 MG/ML Syringe IVPUSH PRN (19:16)
[2019-07-20] MEDS ORDERED: Magnesium Sulfate/Water 2 GM in Premix Bag 1 BAG IV ONE (19:16)
[2019-07-21] MEDS: Heparin Sodium 5,000 Units/ML Vial SUBCUT SCH (00:31)
[2019-07-21 06:55] LABS: BLOOD UREA NITROGEN,BUN 12 mg/dL (7.0-18.0); CARBON DIOXIDE,CO2 25.6 mmol/L (21.0-32.0); CHLORIDE,CL 109 mmol/L (98-107); GLUCOSE RANDOM 91 mg/dL (74-106); POTASSIUM,K 4.5 mmol/L (3.5-5.1); SODIUM,NA 141 mmol/L (136-145)
[2019-07-21] MEDS ORDERED: Omeprazole 20 MG Cap.CR PO SCH (07:30)
[2019-07-21] MEDS ORDERED: Pantoprazole 40 MG in Sodium Chloride 0.9% 10 ML IV SCH (09:00)
[2019-07-21] MEDS ORDERED: Clopidogrel 75 MG Tab PO SCH (09:00)
[2019-07-21] MEDS ORDERED: Aspirin 81 MG Tab.Chew PO SCH (09:00)
[2019-07-21] MEDS ORDERED: Metoprolol Succinate 25 MG Tab.ER PO SCH (09:00)
[2019-07-21] MEDS ORDERED: Rosuvastatin 10 MG Tab PO SCH (09:00)
== END 2019-07-21 07:00 | disposition left against medical advice (07) ==
LOC: MW.ED 14:05 → MW.MS 16:20
PROVIDERS: ADMIT Student in an Organized Health Care Education/Training Program; ATTEND Student in an Organized Health Care Education/Training Program
DX: R07.2 Precordial pain (principal); E78.00 Pure hypercholesterolemia, unspecified; D72.829 Elevated white blood cell count, unspecified; Z87.891 Personal history of nicotine dependence; Z79.02 Long term (current) use of antithrombotics/antiplatelets; Z79.899 Other long term (current) drug therapy
CPT/HCPCS: 36415; 71045; 80053; 83735; 84100; 84443; 84484; 85025; 85379; 85610; 93005; 96361; 96374; 99285; A9270; J1644; J2270; J2405; J3475; J7040; J7050

== ENCOUNTER 2019-08-19 10:52 | Emergency (ER) | payer OTHER ==
[2019-08-19 11:52] LABS: BLOOD UREA NITROGEN,BUN 14 mg/dL (7.0-18.0); CARBON DIOXIDE,CO2 22.9 mmol/L (21.0-32.0); CHLORIDE,CL 105 mmol/L (98-107); GLUCOSE RANDOM 142 mg/dL (74-106); POTASSIUM,K 4.1 mmol/L (3.5-5.1); SODIUM,NA 139 mmol/L (136-145)
--- NOTE | 2019-08-19 12:30 | CR ---
Chest: 2 views of the chest were obtained. Comparison: Prior chest x-ray of 07/20/19. Heart size and mediastinum are normal. Lungs show no acute parenchymal change. Bony structures show no acute finding. Impression: 1. Nothing acute is appreciated on 2 view chest x-ray. Diagnostic code #1 This report was dictated in [place] Standard Time
--- NOTE | 2019-08-19 14:09 | EDM.PDOC ---
ED HPI GENERAL MEDICAL PROBLEM - General Chief Complaint: Chest Pain Stated Complaint: CHEST PAIN Time Seen by Provider: 08/19/19 14:05 Source of Information: Reports: Patient, Old Records History Limitations: Reports: No Limitations - History of Present Illness INITIAL COMMENTS - FREE TEXT/NARRATIVE: Patient is a 49-year-old female with a past medical history of coronary artery disease status post 1 stent and elevated cholesterol presenting with a chief complaint of chest pain. The patient is currently without pain but states she woke up in the middle the night last night with chest pain which lasted for a few minutes and resolved with nitroglycerin. Reports feeling diaphoretic and sweaty along with tingling of both of her fingertips extremely anxious. Patient states that she had several similar episodes over the past few days. Denies any exertional symptoms. Denies any fever, cough, shortness of breath, radiation of the discomfort. Patient is currently pain-free and has not had any pain while in the emergency department. Patient is concerned about a "tumor " that she was told she had on a prior CAT scan. She thinks that may be the cause of her symptoms. In addition to that documented in the HPI above, the additional ROS was obtained : Constitutional: Denies fevers or chills Eyes: Denies vision changes ENMT: Denies sore throat CV: Per HPI Resp: Denies SOB GI: Denies vomiting or diarrhea : Denies painful urination MSK: Denies recent trauma Skin: Denies new rashes Neuro: Per HPI Endocrine: Denies unexpected weight loss Heme: Denies bleeding disorders I have reviewed the triage vital signs Const: Well nourished, well developed, appears stated age Eyes: PERRL, no conjunctival injection HENT: NCAT, Neck supple without meningismus CV: RRR, Warm, well-perfused extremities RESP: CTAB, Unlabored respiratory effort GI: soft, non-tender, non-distended, no masses MSK: No gross deformities appreciated Skin: Warm, dry. No rashes Neuro: Alert, water sander II-XII grossly intact. Sensation and motor function of extremities grossly intact. Psych: Appropriate mood and affect Assessment and plan: Patient is a 49-year-old female with a complaint of intermittent chest pain. Patient's serial EKGs and troponins were both within normal limits. Patient has a heart score of 4 and was therefore offered observation in the hospital which patient declined. Shared decision-making was used to discuss symptomatology as well as risks and benefits of hospital stay. Patient urged to follow-up with marketing programs manager soon as possible for further evaluation. Patient is PERC negative and therefore I do not suspect pulmonary embolism. Low suspicion for aortic dissection as well. Patient will be discharged and will follow-up as an outpatient. Patient given strict return precautions. All questions addressed and answered. Patient agrees with plan. Generalized Pain Score (Numeric/FACES): 6 - Related Data Allergies Allergy/AdvReac Type Severity Reaction Status Date / Time No Known Allergies Allergy Verified 08/19/19 10:57 Home Meds: Home Meds Clopidogrel [Plavix] 75 mg PO DAILY 02/28/19 [History] Metoprolol Succinate [Toprol XL] 25 mg PO DAILY 02/28/19 [History] Rosuvastatin [Crestor] 5 mg PO DAILY 02/28/19 [History] Isosorbide Mononitrate 20 mg PO DAILY 06/24/19 [History] Nitroglycerin 0.3 mg PO ASDIRECTED 07/20/19 [History] Past Medical History Cardiovascular History: Reports: High Cholesterol, [place], Stents Other Cardiovascular History: PT reports stents placed in [place] 2019 Gastrointestinal History: Reports: Other (See Below) Other Gastrointestinal History: pt c/o of having heartburn for the 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: , 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 - Infectious Disease History Infectious Disease History: Reports: None - Past Surgical History HEENT Surgical History: Reports: Tonsillectomy GI Surgical History: Reports: Appendectomy Musculoskeletal Surgical History: Reports: Other (See Below) Other Musculoskeletal Surgeries/Procedures:: L knee surgery Social & Family History - Family History Family Medical History: Noncontributory Cardiac: Reports: Bypass, High Cholesterol, Hypertension Other Cardiac Family History: cardiac problems in father - Tobacco Use Smoking Status *Q: Former Smoker Used Tobacco, but Quit: Yes Month/Year Tobacco Last Used: 2018 - Caffeine Use Caffeine Use: Reports: Coffee, Soda - Recreational Drug Use Recreational Drug Use: No ED ROS GENERAL - Review of Systems Review Of Systems: See Below ED EXAM, GENERAL - Physical Exam Exam: See Below Course - Vital Signs Last Recorded V/S: Last Vital Signs Temp 36.3 C 08/19/19 14:53 Pulse 64 08/19/19 14:53 Resp 16 08/19/19 14:53 BP 106/65 08/19/19 14:53 Pulse Ox 97 08/19/19 14:53 - Orders/Labs/Meds Orders: Active Orders 24 hr Category Date Time Status EKG 12 Lead [EKG Documentation Completion] [RC] ROUTINE Care 08/19/19 13:25 Active EKG 12 Lead [EKG Documentation Completion] [RC] STAT Care 08/19/19 13:45 Active Labs: Laboratory Tests 08/19/19 08/19/19 08/19/19 Range/Units 11:00 11:00 13:01 WBC 7.99 (4.0-11.0) K/uL RBC 4.61 (4.30-5.90) M/uL Hgb 14.8 (12.0-16.0) g/dL Hct 44.1 (36.0-46.0) % MCV 95.7 (80.0-98.0) fL MCH 32.1 H (27.0-32.0) pg MCHC 33.6 (31.0-37.0) g/dL RDW Std Deviation 45.3 (28.0-62.0) fl RDW Coeff of Natalie 13 (11.0-15.0) % Plt Count 277 (150-400) K/uL MPV 10.50 (7.40-12.00) fL Neut % (Auto) 60.7 (48.0-80.0) % Lymph % (Auto) 29.2 (16.0-40.0) % [place] % (Auto) 7.1 (0.0-15.0) % Eos % (Auto) 2.1 (0.0-7.0) % Baso % (Auto) 0.9 (0.0-1.5) % Neut # (Auto) 4.9 (1.4-5.7) K/uL Lymph # (Auto) 2.3 (0.6-2.4) K/uL [place] # (Auto) 0.6 (0.0-0.8) K/uL Eos # (Auto) 0.2 (0.0-0.7) K/uL Baso # (Auto) 0.1 (0.0-0.1) K/uL Nucleated RBC % 0.0 /100WBC Nucleated RBCs # 0 K/uL Sodium 139 (136-145) mmol/L Potassium 4.1 (3.5-5.1) mmol/L Chloride 105 (98-107) mmol/L Carbon Dioxide 22.9 (21.0-32.0) mmol/L BUN 14 (7.0-18.0) mg/dL Creatinine 0.9 (0.6-1.0) mg/dL Est Cr Clr Drug Dosing 57.06 mL/min Estimated GFR (MDRD) > 60.0 ml/min Glucose 142 H (74-106) mg/dL Calcium 8.9 (8.5-10.1) mg/dL Total Bilirubin 1.3 H (0.2-1.0) mg/dL AST 21 (15-37) IU/L ALT 37 (14-63) IU/L Alkaline Phosphatase 68 (46-116) U/L Troponin I < 0.050 (0.000-0.056) ng/mL Total Protein 7.3 (6.4-8.2) g/dL Albumin 4.2 (3.4-5.0) g/dL Globulin 3.1 (2.6-4.0) g/dL Albumin/Globulin Ratio 1.4 (0.9-1.6) Urine Color YELLOW Urine Appearance CLEAR Urine pH 5.5 (5.0-8.0) Ur Specific [place] 1.020 (1.001-1.035) Urine Protein NEGATIVE (NEGATIVE) mg/dL Urine Glucose (UA) NEGATIVE (NEGATIVE) mg/dL Urine Ketones NEGATIVE (NEGATIVE) mg/dL Urine Occult Blood NEGATIVE (NEGATIVE) Urine Nitrite NEGATIVE (NEGATIVE) Urine Bilirubin NEGATIVE (NEGATIVE) Urine Urobilinogen 0.2 (<2.0) EU/dL Ur Leukocyte Esterase NEGATIVE (NEGATIVE) 08/19/19 Range/Units 13:58 WBC (4.0-11.0) K/uL RBC (4.30-5.90) M/uL Hgb (12.0-16.0) g/dL Hct (36.0-46.0) % MCV (80.0-98.0) fL MCH (27.0-32.0) pg MCHC (31.0-37.0) g/dL RDW Std Deviation (28.0-62.0) fl RDW Coeff of Natalie (11.0-15.0) % Plt Count (150-400) K/uL MPV (7.40-12.00) fL Neut % (Auto) (48.0-80.0) % Lymph % (Auto) (16.0-40.0) % [place] % (Auto) (0.0-15.0) % Eos % (Auto) (0.0-7.0) % Baso % (Auto) (0.0-1.5) % Neut # (Auto) (1.4-5.7) K/uL Lymph # (Auto) (0.6-2.4) K/uL [place] # (Auto) (0.0-0.8) K/uL Eos # (Auto) (0.0-0.7) K/uL Baso # (Auto) (0.0-0.1) K/uL Nucleated RBC % /100WBC Nucleated RBCs # K/uL Sodium (136-145) mmol/L Potassium (3.5-5.1) mmol/L Chloride (98-107) mmol/L Carbon Dioxide (21.0-32.0) mmol/L BUN (7.0-18.0) mg/dL Creatinine (0.6-1.0) mg/dL Est Cr Clr Drug Dosing mL/min Estimated GFR (MDRD) ml/min Glucose (74-106) mg/dL Calcium (8.5-10.1) mg/dL Total Bilirubin (0.2-1.0) mg/dL AST (15-37) IU/L ALT (14-63) IU/L Alkaline Phosphatase (46-116) U/L Troponin I < 0.050 (0.000-0.056) ng/mL Total Protein (6.4-8.2) g/dL Albumin (3.4-5.0) g/dL Globulin (2.6-4.0) g/dL Albumin/Globulin Ratio (0.9-1.6) Urine Color Urine Appearance Urine pH (5.0-8.0) Ur Specific [place] (1.001-1.035) Urine Protein (NEGATIVE) mg/dL Urine Glucose (UA) (NEGATIVE) mg/dL Urine Ketones (NEGATIVE) mg/dL Urine Occult Blood (NEGATIVE) Urine Nitrite (NEGATIVE) Urine Bilirubin (NEGATIVE) Urine Urobilinogen (<2.0) EU/dL Ur Leukocyte Esterase (NEGATIVE) Departure - Departure Time of Disposition: 14:46 Disposition: Home, Self-Care 01 Clinical Impression: Chest pain Qualifiers: Chest pain type: unspecified Qualified Code(s): R07.9 - Chest pain, unspecified Instructions: Nonspecific Chest Pain, [id number] Referrals: PCP,None [Primary Care Provider] - Forms: ED Department Discharge Additional Instructions: The following information is given to patients seen in the emergency department who are being discharged to home. This information is to outline your options for follow-up care. We provide all patients seen in our emergency department with a follow-up referral. The need for follow-up, as well as the timing and circumstances, are variable depending upon the specifics of your emergency department visit. If you don't have a primary care physician on staff, we will provide you with a referral. We always advise you to contact your personal physician following an emergency department visit to inform them of the circumstance of the visit and for follow-up with them and/or the need for any referrals to a consulting specialist. The emergency department will also refer you to a specialist when appropriate. This referral assures that you have the opportunity for follow-up care with a specialist. All of these measure are taken in an effort to provide you with optimal care, which includes your follow-up. Under all circumstances we always encourage you to contact your private physician who remains a resource for coordinating your care. When calling for follow-up care, please make the office aware that this follow-up is from your recent emergency room visit. If for any reason you are refused follow-up, please contact the [facility] Emergency Department at and asked to speak to the emergency department charge nurse. Sepsis Event Note - Evaluation Sepsis Screening Result: No Definite Risk - Focused Exam Vital Signs: Vital Signs Temp Pulse Resp BP Pulse Ox 08/19/19 14:53 36.3 C 64 16 106/65 97 08/19/19 14:00 63 110/69 08/19/19 11:30 94 133/75 08/19/19 10:58 36.8 C 86 18 137/89 99 Date Exam was Performed: 08/19/19 Time Exam was Performed: 17:35 - My Orders Last 24 Hours: My Active Orders 08/19/19 13:25 EKG 12 Lead [EKG Documentation Completion] [RC] ROUTINE 08/19/19 13:45 EKG 12 Lead [EKG Documentation Completion] [RC] STAT - Assessment/Plan Last 24 Hours: My Active Orders 08/19/19 13:25 EKG 12 Lead [EKG Documentation Completion] [RC] ROUTINE 08/19/19 13:45 EKG 12 Lead [EKG Documentation Completion] [RC] STAT
== END 2019-08-19 14:53 | disposition home or self-care (01) ==
LOC: MW.ED 10:52
DX: R07.9 Chest pain, unspecified (principal); E78.00 Pure hypercholesterolemia, unspecified; I25.2 Old myocardial infarction; Z87.891 Personal history of nicotine dependence; Z79.02 Long term (current) use of antithrombotics/antiplatelets; Z79.899 Other long term (current) drug therapy
CPT/HCPCS: 36415; 71046; 71046-26; 80053; 81003; 84484; 85025; 93005; 99285-25

== ENCOUNTER 2019-10-03 18:30 | Emergency (ER) | payer OTHER ==
[2019-10-03] MEDS ORDERED: Sodium Chloride 0.9% 2.5 ML Syringe FLUSH PRN (18:57)
[2019-10-03] MEDS ORDERED: Sodium Chloride 0.9% 10 ML Syringe FLUSH PRN (18:57)
[2019-10-03] MEDS ORDERED: Aspirin 325 MG Tab.EC PO ONE (19:11)
--- NOTE | 2019-10-03 19:20 | CR ---
Chest: Portable view of the chest was obtained. Comparison: Prior chest x-ray of 08/19/19. Heart size and mediastinum are normal. Lungs are clear with no acute parenchymal change. Bony structures are grossly intact. Impression: 1. Nothing acute is appreciated on portable chest x-ray. Diagnostic code #1 This report was dictated in [place] Standard Time
[2019-10-03] MEDS ORDERED: Aspirin 325 MG Tab PO ONE (19:25)
--- NOTE | 2019-10-03 19:26 | EDM.PDOC ---
ED HPI GENERAL MEDICAL PROBLEM - General Chief Complaint: Chest Pain Stated Complaint: CHEST PAIN Time Seen by Provider: 10/03/19 19:05 Source of Information: Reports: Patient - History of Present Illness INITIAL COMMENTS - FREE TEXT/NARRATIVE: The patient is a 49-year-old female with a history of coronary artery disease and a previous myocardial infarction in 1 stent presents to the ER for chest pain. 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 The chest pain happened this morning and radiated down her left arm and a little bit into her teeth. She took one nitroglycerin tablet and the pain went away. She is not sure why she came into the ER tonight when the pain happened this morning other than having some residual achiness in her teeth. However she is not having chest pain at the moment she is not short of breath, she has no dyspnea with exertion , no palpitations, no syncope, no near syncope, no other acute complaints. chest Pain Score (Numeric/FACES): 4 - Related Data Allergies Allergy/AdvReac Type Severity Reaction Status Date / Time No Known Allergies Allergy Verified 10/03/19 18:41 Home Meds: Home Meds Clopidogrel [Plavix] 75 mg PO DAILY 02/28/19 [History] Rosuvastatin [Crestor] 5 mg PO BEDTIME 02/28/19 [History] Isosorbide Mononitrate 20 mg PO DAILY 06/24/19 [History] Nitroglycerin 0.3 mg PO ASDIRECTED 07/20/19 [History] amLODIPine [Norvasc] 5 mg PO DAILY 10/03/19 [History] Past Medical History HEENT History: Reports: None Cardiovascular History: Reports: High Cholesterol, [place], Stents Other Cardiovascular History: PT reports stents placed in [place] 2019, coronary spasm Gastrointestinal History: Reports: Other (See Below) Other Gastrointestinal History: pt c/o of having heartburn 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: Reports: , Other (See Below) Other 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: x3 Musculoskeletal History: Reports: None - Infectious Disease History Infectious Disease History: Reports: None - Past Surgical History HEENT Surgical History: Reports: Tonsillectomy Cardiovascular Surgical History: Reports: Coronary Artery Stent GI Surgical History: Reports: Appendectomy Musculoskeletal Surgical History: Reports: Other (See Below) Other Musculoskeletal Surgeries/Procedures:: L knee surgery Social & Family History - Family History Family Medical History: Noncontributory Cardiac: Reports: Bypass, High Cholesterol, Hypertension Other Cardiac Family History: cardiac problems in father - Tobacco Use Smoking Status *Q: Current Every Day Smoker Years of Tobacco use: 20 Packs/Tins Daily: 0.5 - Caffeine Use Caffeine Use: Reports: Coffee - Recreational Drug Use Recreational Drug Use: No ED ROS GENERAL - Review of Systems Review Of Systems: See Below (Positive for chest pain, negative for shortness of breath, negative dyspnea exertion, negative for cough, negative for fevers, negative for leg swelling, all other Positives and pertinent negatives as per HPI. All other pertinent systems were reviewed and are negative) ED EXAM, GENERAL - Physical Exam Exam: See Below Free Text/Narrative:: Constitutional: No acute distress, Non-toxic appearance, fully manicured HEENT.: Normocephalic, Atraumatic, PERRL, EOMI, External ears are atraumatic, nares are patent without epistaxis Neck: Normal range of motion, Trachea Midline, No stridor Respiratory.: No respiratory distress, No tachypnea, Lungs Clear to Auscultation bilaterally without wheezes, rales, or rhonchi Cardiovascular.: Regular rate and Rhythm without murmurs, rubs, or gallops, good peripheral perfusion GI: Abdomen soft and non tender, no masses, no rebound, rigidity, or guarding Genital Urinary: Deferred Musculoskeletal: Good range of motion. All 4 extremities present and atraumatic , no edema Back: Full Range of Motion Skin: Warm, Dry, Color is ethnicity appropriate, No acute rash. Lymphatic: No lymphadenopathy noted Neurological: Alert, Awake and oriented x 3, No focal deficits noted appreciate , GCS 15 Psych: Affect, Judgement, mood normal Course - Vital Signs Text/Narrative:: Differential diagnosis includes myocarditis, endocarditis, pericardial effusion , pulmonary embolism, pulmonary infarction, acute coronary syndrome, pneumonia, pleural effusion, pneumothorax, thoracic mass, others ECG The ECG was read and interpreted by me. There are p waves before every QRS with a ventricular rate of 86. The [place], QRS, and QT intervals are all normal. [place] is normal. ST segments are baseline and the T wave morphology is normal. Final interpretation is a normal Sinus rhythm and a normal ECG. Chest x-ray was reviewed and interpreted by me -there are no pulmonary infiltrates, pleural effusions, pneumothorax, thoracic masses or any acute pathology Labs are unremarkable, vital signs are stable and the patient is currently symptom-free. The patient is comfortable with being discharged and not being admitted to the hospital since her pain was over 12 hours ago and was relieved with a nitroglycerin tablet. She understands the risks but I believe that it is also reasonable as she is not having any signs or symptoms of unstable angina at this time. We talked about unstable angina and the patient agrees that if she starts developing persistent chest pain, difficulty breathing, etc. then she will return promptly to the ER. 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 Last Recorded V/S: Last Vital Signs Temp 37.1 C 10/03/19 18:34 Pulse 82 10/03/19 19:32 Resp 18 10/03/19 19:32 BP 123/78 10/03/19 19:32 Pulse Ox 97 10/03/19 19:32 - Orders/Labs/Meds Orders: Active Orders 24 hr Category Date Time Status EKG Documentation Completion [RC] STAT Care 10/03/19 18:57 Active Sodium Chloride 0.9% [Saline Flush] Med 10/03/19 18:57 Active 10 ml FLUSH ASDIRECTED PRN Sodium Chloride 0.9% [Saline Flush] Med 10/03/19 18:57 Active 2.5 ml FLUSH ASDIRECTED PRN Saline Lock Insert [OM.PC] Stat Oth 10/03/19 18:57 Ordered Medication Orders Sodium Chloride (Saline Flush) 10 ml FLUSH ASDIRECTED PRN PRN Reason: Keep Vein Open Last Admin: 10/03/19 19:31 Dose: 10 ml Sodium Chloride (Saline Flush) 2.5 ml FLUSH ASDIRECTED PRN PRN Reason: Keep Vein Open Last Admin: 10/03/19 19:31 Dose: 2.5 ml Labs: Laboratory Tests 10/03/19 10/03/19 10/03/19 Range/Units 19:13 19:13 19:13 WBC 8.63 (4.0-11.0) K/uL RBC 4.45 (4.30-5.90) M/uL Hgb 14.0 (12.0-16.0) g/dL Hct 41.2 (36.0-46.0) % MCV 92.6 (80.0-98.0) fL MCH 31.5 (27.0-32.0) pg MCHC 34.0 (31.0-37.0) g/dL RDW Std Deviation 38.2 (28.0-62.0) fl RDW Coeff of Natalie 11 (11.0-15.0) % Plt Count 219 (150-400) K/uL MPV 10.10 (7.40-12.00) fL Neut % (Auto) 48.0 (48.0-80.0) % Lymph % (Auto) 39.3 (16.0-40.0) % [place] % (Auto) 9.3 (0.0-15.0) % Eos % (Auto) 2.8 (0.0-7.0) % Baso % (Auto) 0.6 (0.0-1.5) % Neut # (Auto) 4.2 (1.4-5.7) K/uL Lymph # (Auto) 3.4 H (0.6-2.4) K/uL [place] # (Auto) 0.8 (0.0-0.8) K/uL Eos # (Auto) 0.2 (0.0-0.7) K/uL Baso # (Auto) 0.1 (0.0-0.1) K/uL Sodium 139 (136-145) mmol/L Potassium 3.8 (3.5-5.1) mmol/L Chloride 105 (98-107) mmol/L Carbon Dioxide 24.6 (21.0-32.0) mmol/L BUN 12 (7.0-18.0) mg/dL Creatinine 0.7 (0.6-1.0) mg/dL Est Cr Clr Drug Dosing 73.36 mL/min Estimated GFR (MDRD) > 60.0 ml/min Glucose 99 (74-106) mg/dL Calcium 8.7 (8.5-10.1) mg/dL Total Bilirubin 0.9 (0.2-1.0) mg/dL AST 16 (15-37) IU/L ALT 25 (14-63) IU/L Alkaline Phosphatase 63 (46-116) U/L Troponin I < 0.050 (0.000-0.056) ng/mL Total Protein 6.8 (6.4-8.2) g/dL Albumin 4.2 (3.4-5.0) g/dL Globulin 2.6 (2.6-4.0) g/dL Albumin/Globulin Ratio 1.6 (0.9-1.6) Urine Color YELLOW Urine Appearance CLEAR Urine pH 5.5 (5.0-8.0) Ur Specific [place] 1.025 (1.001-1.035) Urine Protein NEGATIVE (NEGATIVE) mg/dL Urine Glucose (UA) NEGATIVE (NEGATIVE) mg/dL Urine Ketones NEGATIVE (NEGATIVE) mg/dL Urine Occult Blood TRACE-INTACT H (NEGATIVE) Urine Nitrite NEGATIVE (NEGATIVE) Urine Bilirubin NEGATIVE (NEGATIVE) Urine Urobilinogen 0.2 (<2.0) EU/dL Ur Leukocyte Esterase NEGATIVE (NEGATIVE) Urine RBC 0-2 (0-2/HPF) Urine WBC 0-1 (0-5/HPF) Ur Epithelial Cells FEW (NONE-FEW) Urine Bacteria FEW (NEGATIVE) Meds: Medications Generic Name Dose Route Start Last Admin Trade Name Ayden PRN Reason Stop Dose Admin Sodium Chloride 10 ml 10/03/19 18:57 10/03/19 19:31 Saline Flush FLUSH 10 ml ASDIRECTED PRN Administration Keep Vein Open Sodium Chloride 2.5 ml 10/03/19 18:57 10/03/19 19:31 Saline Flush FLUSH 2.5 ml ASDIRECTED PRN Administration Keep Vein Open Discontinued Medications Generic Name Dose Route Start Last Admin Trade Name Ayden PRN Reason Stop Dose Admin Aspirin 325 mg 10/03/19 19:25 10/03/19 19:31 Aspirin PO 10/03/19 19:26 325 mg ONETIME ONE Administration Departure - Departure Time of Disposition: 20:08 Disposition: Home, Self-Care 01 Condition: Good Clinical Impression: Chest pain Qualifiers: Chest pain type: unspecified Qualified Code(s): R07.9 - Chest pain, unspecified Instructions: Angina Pectoris, [id number] Forms: ED Department Discharge Sepsis Event Note - Evaluation Sepsis Screening Result: No Definite Risk - Focused Exam Vital Signs: Vital Signs Temp Pulse Resp BP Pulse Ox 10/03/19 19:32 82 18 123/78 97 10/03/19 18:34 37.1 C 87 18 142/89 H 97 Date Exam was Performed: 10/03/19 Time Exam was Performed: 20:07
[2019-10-03 19:51] LABS: BLOOD UREA NITROGEN,BUN 12 mg/dL (7.0-18.0); CARBON DIOXIDE,CO2 24.6 mmol/L (21.0-32.0); CHLORIDE,CL 105 mmol/L (98-107); GLUCOSE RANDOM 99 mg/dL (74-106); POTASSIUM,K 3.8 mmol/L (3.5-5.1); SODIUM,NA 139 mmol/L (136-145)
== END 2019-10-03 20:22 | disposition home or self-care (01) ==
LOC: MW.ED 18:30
DX: R07.9 Chest pain, unspecified (principal); F17.210 Nicotine dependence, cigarettes, uncomplicated; Z79.899 Other long term (current) drug therapy
CPT/HCPCS: 36415; 71045; 80053; 81001; 84484; 85025; 99285; A9270

== ENCOUNTER 2019-11-01 18:03 | Emergency (ER) | payer BC, OTHER ==
[2019-11-01] MEDS ORDERED: Diphtheria,Pertussis(Acell),Tetanus Vaccine 0.5 ML Syringe IM ONE (18:46)
--- NOTE | 2019-11-01 19:19 | CR ---
Right hand: 3 views of the right hand were obtained. Overlying bandage is seen within the fourth finger. No acute fracture, dislocation or other bony abnormality is appreciated. Impression: 1. Overlying bandage. 2. No acute bony abnormality is appreciated on right hand exam. Diagnostic code #2 Study was dictated in MDT
[2019-11-01] MEDS ORDERED: Lidocaine 2% Viscous Solution 15 ML Cup PO ONE (19:29)
[2019-11-01] MEDS ORDERED: Lidocaine 1% 10 ML MDV INJECT ONE (19:37)
--- NOTE | 2019-11-01 20:21 | EDM.PDOC ---
ED HPI GENERAL MEDICAL PROBLEM - General Chief Complaint: Upper Extremity Injury/Pain Stated Complaint: RIGHT HAND INJURY Time Seen by Provider: 11/01/19 18:04 Source of Information: Reports: Patient History Limitations: Reports: No Limitations - History of Present Illness INITIAL COMMENTS - FREE TEXT/NARRATIVE: 49-year-old female presents emergency room chief complaint of laceration to the fingertip. Patient states she was trying to get a spoon ended up cutting herself with a knife. Tetanus unknown Onset: Today Duration: Hour(s): Location: Reports: Upper Extremity, Right (Right ring finger) Severity: Moderate Improves with: Reports: None Worsens with: Reports: None Right Ring Finger Pain Score (Numeric/FACES): 6 - Related Data Allergies Allergy/AdvReac Type Severity Reaction Status Date / Time No Known Allergies Allergy Verified 11/01/19 18:23 Home Meds: Home Meds Clopidogrel [Plavix] 75 mg PO DAILY 02/28/19 [History] Rosuvastatin [Crestor] 5 mg PO BEDTIME 02/28/19 [History] Isosorbide Mononitrate 20 mg PO DAILY 06/24/19 [History] Nitroglycerin 0.3 mg PO ASDIRECTED 07/20/19 [History] amLODIPine [Norvasc] 5 mg PO DAILY 10/03/19 [History] Past Medical History HEENT History: Reports: None Cardiovascular History: Reports: High Cholesterol, Hypertension, [place], Stents Other Cardiovascular History: PT reports stents placed in [place] 2019, coronary spasm Gastrointestinal History: Reports: Other (See Below) Other Gastrointestinal History: pt c/o of having heartburn 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 History: Reports: , Other (See Below) Other NURSING TECHN History: x3 Musculoskeletal History: Reports: None - Infectious Disease History Infectious Disease History: Reports: None - Past Surgical History HEENT Surgical History: Reports: Tonsillectomy Cardiovascular Surgical History: Reports: Coronary Artery Stent GI Surgical History: Reports: Appendectomy Musculoskeletal Surgical History: Reports: Other (See Below) Other Musculoskeletal Surgeries/Procedures:: L knee surgery Social & Family History - Family History Family Medical History: Noncontributory Cardiac: Reports: Bypass, High Cholesterol, Hypertension Other Cardiac Family History: cardiac problems in father - Tobacco Use Smoking Status *Q: Never Smoker - Caffeine Use Caffeine Use: Reports: None - Recreational Drug Use Recreational Drug Use: No Review of Systems - Review of Systems Review Of Systems: See Below Constitutional: Reports: No Symptoms Eyes: Reports: No Symptoms Ears: Reports: No Symptoms Nose: Reports: No Symptoms Mouth/Throat: Reports: No Symptoms Respiratory: Reports: No Symptoms Cardiovascular: Reports: No Symptoms GI/Abdominal: Reports: No Symptoms Genitourinary: Reports: No Symptoms Musculoskeletal: Reports: No Symptoms Skin: Reports: Other (Right ring finger laceration nailbed injury) Neurological: Reports: No Symptoms Psychiatric: Reports: No Symptoms ED EXAM, GENERAL - Physical Exam Exam: See Below Free Text/Narrative:: Patient has a laceration to the nailbed with avulsion of the nail on the lateral aspect of the right finger. We through the nailbed. Patient has active bleeding at the time of exam. Exam Limited By: No Limitations General Appearance: Alert, WD/WN, No Apparent Distress Eye Exam: Bilateral Eye: Normal Fundi, PERRL Ears: Normal External Exam Nose: Normal Inspection Throat/Mouth: Normal Inspection Head: Atraumatic, Normocephalic Neck: Normal Inspection Respiratory/Chest: No Respiratory Distress Cardiovascular: Normal Peripheral Pulses (Female) Exam: Deferred Rectal (Female) Exam: Deferred Back Exam: Normal Inspection Extremities: Other (He has a 1 cm laceration to the left index finger through the nail bed related with partial avulsion.) Neurological: Alert, Oriented Skin Exam: Warm ED TRAUMA EXTREMITY PROCEDURES - Laceration/Wound Repair Right Digit - 4th (Ring) Lac/Wound Length In cm: 1 Appearance: Subcutaneous, Clean Distal NVT: No Tendon Injury Anesthetic Type: Other (Digital block ring finger 1% lidocaine without epi approximately 10 cc) Local Anesthesia - Lidocaine (Xylocaine): 1% Plain Local Anesthetic Volume: Other (10) Skin Prep: Chlorhexidine (Hibiciens) Exploration/Debridement/Repair: Wound Explored, In a Bloodless Field, No Foreign Material Found, Other (Tacked the nail back onto the area. Repaired the nailbed. 5- 0 x6) Suture Type: Nylon, Interrupted Suture Size: 5-0 # of Sutures: 6 Drain Placement: No Sterile Dressing Applied: Nurse Tetanus Status Addressed: Yes (Received tetanus shot) Complications: No Course - Vital Signs Last Recorded V/S: Last Vital Signs Temp 96.2 F L 11/01/19 18:24 Pulse 78 11/01/19 18:24 Resp 15 11/01/19 18:24 BP 118/75 11/01/19 18:24 Pulse Ox 97 11/01/19 18:24 - Orders/Labs/Meds Orders: Active Orders 24 hr Category Date Time Status Vaccines to be Administered [RC] PER UNIT ROUTINE Care 11/01/19 18:46 Active Meds: Medications Discontinued Medications Generic Name Dose Route Start Last Admin Trade Name Ayden PRN Reason Stop Dose Admin Diphtheria/Tetanus/Acell Pertussis 0.5 ml 11/01/19 18:46 11/01/19 19:47 Adacel IM 11/01/19 18:47 0.5 ml .ONCE ONE Administration Lidocaine HCl Confirm 11/01/19 19:33 11/01/19 19:48 Xylocaine-Mpf 1% Administered 11/01/19 19:34 Not Given Dose 10 ml .ROUTE .STK-MED ONE Lidocaine HCl 10 ml 11/01/19 19:37 11/01/19 19:48 Xylocaine 1% INJECT 11/01/19 19:38 10 ml ONETIME ONE Administration Departure - Departure Time of Disposition: 20:26 Disposition: Home, Self-Care 01 Condition: Good Clinical Impression: Laceration of finger - Discharge Information Referrals: Oumar Levy MD [Primary Care Provider] - Sepsis Event Note - Evaluation Sepsis Screening Result: No Definite Risk - Focused Exam Vital Signs: Vital Signs Temp Pulse Resp BP Pulse Ox 11/01/19 18:24 96.2 F L 78 15 118/75 97 Date Exam was Performed: 11/01/19 Time Exam was Performed: 20:16
[2019-11-01] MEDS ORDERED: Cephalexin 500 MG Cap PO ONE (20:29)
== END 2019-11-01 20:53 | disposition home or self-care (01) ==
LOC: MW.ED 18:03
DX: S61.214A Laceration without foreign body of right ring finger without damage to nail, initial encounter (principal); Z23 Encounter for immunization; I10 Essential (primary) hypertension; E78.00 Pure hypercholesterolemia, unspecified; I25.2 Old myocardial infarction; Z79.02 Long term (current) use of antithrombotics/antiplatelets; Z79.899 Other long term (current) drug therapy; W26.0XXA Contact with knife, initial encounter
CPT/HCPCS: 11760; 73130; 90471; 90715; 99283; A9270; J2001; 11730; 12001; 99282

== ENCOUNTER 2019-11-04 17:43 | Emergency (ER) | payer BC ==
[2019-11-04 18:38] LABS: BLOOD UREA NITROGEN,BUN 15 mg/dL (7.0-18.0); CARBON DIOXIDE,CO2 26.3 mmol/L (21.0-32.0); CHLORIDE,CL 104 mmol/L (98-107); GLUCOSE RANDOM 93 mg/dL (74-106); POTASSIUM,K 4.4 mmol/L (3.5-5.1); SODIUM,NA 139 mmol/L (136-145)
--- NOTE | 2019-11-04 18:56 | EDM.PDOC ---
ED [facility] GENERAL MEDICAL PROBLEM - General Chief Complaint: Chest Pain Stated Complaint: CHEST PAIN Time Seen by Provider: 11/04/19 17:58 - History of Present Illness INITIAL COMMENTS - FREE TEXT/NARRATIVE: HPI 49-year-old female with CAD and Prinzmetals angina presents of 12 hours after experiencing approximately 30 minute long period of chest palpitations and substernal chest discomfort that felt like a pressure and radiated to her left arm, pain was relieved with nitroglycerin. Patient delayed presenting as she was concerned that her troponin will be initially negative and wish to have a definitive evaluation at the time of her ED presentation (without waiting). Now with minimal to no chest discomfort. Patient denies recent immobilization, leg trauma, estrogen use, surgery in the last four weeks, hemoptysis, or malignancy in the last 6 months. M/S/F/SocHx notable for: please see HPI; remainder reviewed with patient and in chart. ROS: Negative constitutional, eye, cardiovascular, pulmonary, GI, , MSK, skin , neurologic, psychiatric, endocrine unless noted in the HPI. Exam HR 73, RR 18, BP 134/90, T 36.3C, SaO2 98% on room air. Gen: Pleasant, non-toxic appearing, resting comfortably. HEENT: NC, AT, PEERL, EOMI. Resp: Clear to auscultation bilaterally, normal work of breathing. Card: RRR with no M/R/G, no crackles in lung bases, no pedal edema, no JVD appreciated. GI: NT/ND Vascular: Both ankles, calves, and thighs of equal size, no calf tenderness to palpation bilaterally. MSK: No chest wall TTP. No visible deformities, strength and tone WNL. Skin: Normal color with no visible lesions. Neuro: AO x 3, no facial asymmetry, vision and hearing WNL. Psych: Mood and affect appropriate. Labs / Imaging (pertinent): WBC 7.7, Hb 13.9, Na 139, K 4.4, AST 14, ALT 26, total bilirubin 0.5, ALP 68, troponin <0.050. PT/INR 0.95 EKG: SR at 103 bpm, no DE segment depressions, no new ST segment changes, new LBBB, or T-wave changes that would suggest acute ischemia. CXR: No acute cardiopulmonary disease process. Radiologist read pending. MDM Previous chart, nursing note, and vitals reviewed. A: 49-year-old female with CAD and Prinzmetals angina presents of 12 hours after experiencing approximately 30 minute long period of chest palpitations and substernal chest discomfort that felt like a pressure and radiated to her left arm, pain was relieved with nitroglycerin. DDx and Evaluation: * ACS - doubt ACS given a non-ischemic EKG and a negative troponin greater than six hours from maximal symptom onset. * UA - moderate concern for unstable angina, HEART score 4 (Hx - 1, EKG - 0, age - 1, risk factors - 2, troponin - 0; 30 day MACE: 12-16.6%). Discussion was had with the patient regarding hospitalization for further investigation, patient wished to be discharged risks and benefits were reviewed and the patient made an informed decision. * Coronary vasospasm/Prinzmetals angina - symptoms may be secondary to coronary vasospasm, however this is tentative at the present time. * Pericarditis - consider pericarditis unlikely given the lack of DE segment depressions as well as the absence of diffuse ST-segment elevations, lack of reduction of pain when supine, and lack of a friction rub. * Myocarditis - unlikely given the negative troponin and an EKG without characteristic DE-segment or ST-segment changes. * Dissection - dissection is unlikely given symptoms, and lack of mediastinal widening. * PE - low clinical suspicion given history and alternate diagnosis, further risk stratification (e.g.) Wells not indicated. * Mediastinal Air - no evidence by CXR or auscultation. * Pneumothorax - no evidence by CXR or physical exam. * MSK - doubt given lack of reproducibility on exam. * Endocarditis - no identifiable risk factors, patient afebrile, no new murmurs appreciated on exam; doubt. * GI (Esophageal rupture, GERD) - esophageal rupture effectively excluded given the lack of mediastinal widening, non-toxic appearance, and lack of identifiable risk factors. While not definitively excluded, further evaluation of GERD is deferred to an outpatient setting. ED Course: Vital signs remained stable and within clinically acceptable limits. Disposition: Discharge with PCP and/or cardiology follow up. Return to care precautions given verbally and in writing. Impression: Chest Pain. chest Pain Score (Numeric/FACES): 3 - Related Data Allergies Allergy/AdvReac Type Severity Reaction Status Date / Time No Known Allergies Allergy Verified 11/04/19 17:49 Home Meds: Home Meds Clopidogrel [Plavix] 75 mg PO DAILY 02/28/19 [History] Rosuvastatin [Crestor] 5 mg PO BEDTIME 02/28/19 [History] Isosorbide Mononitrate 20 mg PO DAILY 06/24/19 [History] Nitroglycerin 0.3 mg PO ASDIRECTED 07/20/19 [History] amLODIPine [Norvasc] 5 mg PO DAILY 10/03/19 [History] Cephalexin [Keflex] 500 mg PO 5XDAY #20 capsule 11/01/19 [Rx] Past Medical History HEENT History: Reports: None Cardiovascular History: Reports: High Cholesterol, Hypertension, SC, Stents Other Cardiovascular History: PT reports stents placed in [place] 2019, coronary spasm Gastrointestinal History: Reports: Other (See Below) Other Gastrointestinal History: pt c/o of having heartburn 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 ENGINEER History: Reports: , Other (See Below) Other RECLAMATION ENGINEER History: x3 Musculoskeletal History: Reports: None - Infectious Disease History Infectious Disease History: Reports: None - Past Surgical History HEENT Surgical History: Reports: Tonsillectomy Cardiovascular Surgical History: Reports: Coronary Artery Stent GI Surgical History: Reports: Appendectomy Musculoskeletal Surgical History: Reports: Other (See Below) Other Musculoskeletal Surgeries/Procedures:: L knee surgery Social & Family History - Family History Family Medical History: Noncontributory Cardiac: Reports: Bypass, High Cholesterol, Hypertension Other Cardiac Family History: cardiac problems in father - Tobacco Use Smoking Status *Q: Former Smoker Used Tobacco, but Quit: Yes Month/Year Tobacco Last Used: 2019 - Caffeine Use Caffeine Use: Reports: None - Recreational Drug Use Recreational Drug Use: No ED ROS GENERAL - Review of Systems Review Of Systems: See Below ED EXAM, GENERAL - Physical Exam Exam: See Below Course - Vital Signs Last Recorded V/S: Last Vital Signs Temp 36.3 C 11/04/19 17:49 Pulse 70 11/04/19 18:39 Resp 16 11/04/19 18:39 BP 118/82 11/04/19 18:39 Pulse Ox 95 11/04/19 18:39 - Orders/Labs/Meds Orders: Active Orders 24 hr Category Date Time Status EKG Documentation Completion [RC] STAT Care 11/04/19 17:55 Active CXR [Chest 2V] [CR] Stat Exams 11/04/19 17:59 Taken Labs: Laboratory Tests 11/04/19 11/04/19 11/04/19 Range/Units 18:05 18:05 18:05 WBC 7.69 (4.0-11.0) K/uL RBC 4.47 (4.30-5.90) M/uL Hgb 13.9 (12.0-16.0) g/dL Hct 41.5 (36.0-46.0) % MCV 92.8 (80.0-98.0) fL MCH 31.1 (27.0-32.0) pg MCHC 33.5 (31.0-37.0) g/dL RDW Std Deviation 41.5 (28.0-62.0) fl RDW Coeff of Natalie 12 (11.0-15.0) % Plt Count 260 (150-400) K/uL MPV 9.90 (7.40-12.00) fL Neut % (Auto) 44.1 L (48.0-80.0) % Lymph % (Auto) 41.0 H (16.0-40.0) % Edwards % (Auto) 10.4 (0.0-15.0) % Eos % (Auto) 3.8 (0.0-7.0) % Baso % (Auto) 0.7 (0.0-1.5) % Neut # (Auto) 3.4 (1.4-5.7) K/uL Lymph # (Auto) 3.2 H (0.6-2.4) K/uL Edwards # (Auto) 0.8 (0.0-0.8) K/uL Eos # (Auto) 0.3 (0.0-0.7) K/uL Baso # (Auto) 0.1 (0.0-0.1) K/uL Nucleated RBC % 0.0 /100WBC Nucleated RBCs # 0 K/uL INR 0.95 Sodium 139 (136-145) mmol/L Potassium 4.4 (3.5-5.1) mmol/L Chloride 104 (98-107) mmol/L Carbon Dioxide 26.3 (21.0-32.0) mmol/L BUN 15 (7.0-18.0) mg/dL Creatinine 0.7 (0.6-1.0) mg/dL Est Cr Clr Drug Dosing TNP Estimated GFR (MDRD) > 60.0 ml/min Glucose 93 (74-106) mg/dL Calcium 9.1 (8.5-10.1) mg/dL Total Bilirubin 0.5 (0.2-1.0) mg/dL AST 14 L (15-37) IU/L ALT 26 (14-63) IU/L Alkaline Phosphatase 68 (46-116) U/L Troponin I < 0.050 (0.000-0.056) ng/mL Total Protein 7.0 (6.4-8.2) g/dL Albumin 4.1 (3.4-5.0) g/dL Globulin 2.9 (2.6-4.0) g/dL Albumin/Globulin Ratio 1.4 (0.9-1.6) Departure - Departure Time of Disposition: 18:56 Disposition: Home, Self-Care 01 Clinical Impression: Chest pain - Discharge Information Referrals: PCP,None [Primary Care Provider] - Forms: ED Department Discharge Additional Instructions: You were in seen in the [facility] Emergency Department for evaluation of chest pain. Please read and follow all of the instructions below. As we discussed, you are tentatively believed to have a 12-16.6% chance of having a major adverse cardiac event within the next 30 days. This includes significant disability or . Remaining in the hospital for further testing was recommended and you made an informed decision to be discharged home. There is a possibility that your limited evaluation will have missed a serious medical problem that could lead to injury or . Further care in the hospital was recommended. Please follow up with your primary care physician or your graphic arts instructor within 24 hours. When calling for follow-up care, please make the office aware that this follow-up is from your recent emergency room visit. If for any reason you are refused follow-up, please contact the [facility] Emergency Department at and asked to speak to the emergency department charge nurse. Your care today was limited to identifying and treating emergent medical problems only. Many people have subtle differences in their test results that require follow up with their outpatient physician(s) to correctly determine if this represents a normal variation or concerning abnormality with respect to your specific health. The care given to you today was limited to identifying and treating emergent medical problems - you need to request a copy of all of your medical records from todays visit and follow up with your outpatient physician(s) to review both todays visit and your overall health. If you have any new symptoms or if you are at all concerned about your health please return immediately to the emergency department. Prescriptions: If you are uninsured or have financial difficulties with filling your prescription(s), you may consider using a free pharmacy discount service such as [employer] ([employer]) or [employer] ([employer]). These services allow you to search for a medication on your phone (or computer) and obtain a coupon that usually has a significant discount from the list loomis at a pharmacy. Your physician as well as [facility] does not have a financial relationship with either of these services. You may also wish to speak with your physician to determine if lower cost prescriptions are possible. Obtaining primary care: 1. [facility] provides pediatrics (children), family medicine (children, adults, and some obstetrical care), and internal medicine (adults). Further specialty care is also available. Same day appointments are available. They may be contacted at [phone] and are open Monday through Monday 8 AM to 5 PM. The [facility] are located at [facility], [address] [place] [address] 58. 2. [facility] offers family medicine, internal medicine, [facility], and further specialty care. [facility] may be contacted at [phone]. [facility] is located at [address] [place] [address]. 3. If you have health insurance, please also contact your insurer for a list of accepting providers under your policy, you may contact these providers for further health care. Occupational health: Work related injuries may consider following up with [facility], . Occupational health services are located at [address] [place] [address] and are open Monday through Monday from 7: 30 am to 5:00 pm. Obstetrical and Gynecological Care: [facility], , Monday through Monday 8 AM to 5 PM. [address] [place] [address]. Eyecare: If you have an eye injury you should follow up with your licensed clinical psychologist or with [facility], at [phone] or [phone] , they are located at [address] [place] [address]. Dental Care * Alpesh Burk DDS. [address] [facility].[place], [place]. Ph. [phone] * Nj Burk DDS MS. [address] [facility] [address], [place], [place]. Ph. [phone] * Ronnie Avalos DDS. [address] [facility] [place]. Ph. [phone] * Lambert Willis DDS. [address] [facility] [address] [place], [place]. Ph. [phone] * Timothy Fong DDS PC. [address] [facility] [address] [place], [place]. Ph. [phone] * Reyna Spence DDS. [address] [facility]. Ph. [phone] * [facility]. [address] [place], [place]. Ph. [phone] * [facility]. [address], [place], [place]. Ph. [phone] * [facility] [address] [place] [phone]. Ph. * [facility]. [address] [place] [address] [address] [place], [place]. Ph. [phone] * [facility]. [address] [place], [place]. Ph. [phone] Chest Pain of Unclear Cause You have been seen for chest pain. The cause of your pain is not yet known. You should follow up with your primary care physician in the next day to discuss having a cardiac stress test within 48 hours of today. Your doctor has learned about your medical history, examined you, and checked any tests that were done. Still, it is unclear why you are having pain. The doctor thinks there is only a very small chance that your pain is caused by a life-threatening condition. Later, your primary care doctor might do more tests or check you again. Sometimes chest pain is caused by a dangerous condition, like a heart attack, aorta injury, blood clot in the lung, or collapsed lung. It is unlikely that your pain is caused by a life-threatening condition if: Your chest pain lasts only a few seconds at a time; you are not short of breath, nauseated (sick to your stomach), sweaty, or lightheaded; your pain gets worse when you twist or bend; your pain improves with exercise or hard work. Chest pain is serious. It is VERY IMPORTANT that you follow up with your regular doctor and seek medical attention immediately here or at the nearest Emergency Department if your symptoms become worse or they change. YOU SHOULD SEEK MEDICAL ATTENTION IMMEDIATELY, EITHER HERE OR AT THE NEAREST EMERGENCY DEPARTMENT, IF ANY OF THE FOLLOWING OCCURS: * Your pain gets worse. * Your pain makes you short of breath, nauseated, or sweaty. * Your pain gets worse when you walk, go up stairs, or exert yourself. * You feel weak, lightheaded, or faint. * It hurts to breathe. * Your leg swells. Your symptoms get worse or you have new symptoms or concerns. Sepsis Event Note - Evaluation Sepsis Screening Result: No Definite Risk - Focused Exam Vital Signs: Vital Signs Temp Pulse Resp BP Pulse Ox 11/04/19 18:39 70 16 118/82 95 11/04/19 17:49 36.3 C 73 18 134/90 98 Date Exam was Performed: 11/04/19 Time Exam was Performed: 18:55 - My Orders Last 24 Hours: My Active Orders 11/04/19 17:55 EKG Documentation Completion [RC] STAT 11/04/19 17:59 CXR [Chest 2V] [CR] Stat - Assessment/Plan Last 24 Hours: My Active Orders 11/04/19 17:55 EKG Documentation Completion [RC] STAT 11/04/19 17:59 CXR [Chest 2V] [CR] Stat
--- NOTE | 2019-11-04 18:59 | CR ---
INDICATION: Chest pain TECHNIQUE: Chest 2 views. COMPARISON: October 03, 2019 FINDINGS: Cardiovascular and mediastinum: Heart size and vasculature are normal in caliber and appearance. Mediastinum is within normal limits. Lungs and pleural spaces: Lungs are clear. No sign of infiltrate or mass. No sign of pleural effusion. No pneumothorax. Bones and soft tissues: No significant findings. IMPRESSION: No sign of acute disease. Dictated by Salma Pollock MD @ Nov 04 2019 6:57PM Signed by Dr. Salma Pollock @ Nov 04 2019 6:57PM
== END 2019-11-04 19:07 | disposition home or self-care (01) ==
LOC: MW.ED 17:43
DX: R07.2 Precordial pain (principal); I10 Essential (primary) hypertension; E78.00 Pure hypercholesterolemia, unspecified; Z87.891 Personal history of nicotine dependence; Z79.02 Long term (current) use of antithrombotics/antiplatelets; Z79.899 Other long term (current) drug therapy
CPT/HCPCS: 36415; 71046; 71046-26; 80053; 84484; 85025; 85610; 93005; 99284; 99285-25